=== PATIENT | female | born 1945 | race Caucasian/White ===

== ENCOUNTER 2021-05-11 11:30 | Day surgery (SDC) | payer OTHER, BC ==
--- NOTE | 2021-05-05 11:27 | RAD REPORT ---
EXAM DESCRIPTION: RAD - Chest Pa And Lat (2 Views) - 05/05/2021 11:04 am CLINICAL HISTORY: Pre op pending heart catheterization COMPARISON: Chest Pa And Lat (2 Views) dated 02/21/2017; Abdomen 1 View (KUB) dated 09/13/2016; Abdom en 1 View (KUB) dated 06/03/2016; CHEST PA AND LAT 2 VIEW dated 05/05/2012 FINDINGS: Lines: None. Lungs: No evidence of edema or pneumonia. Pleural: No significant pleural effusions or pneumothorax. Cardiac: Borderline cardiomegaly. Atherosclerosis. Bones: No acute fractures. Other: IMPRESSION: No acute cardiopulmonary disease.
[2021-05-05 11:28] LABS: Absolute Lymphocytes (CBC) 1.2 K/uL (0.7-4.9); Hematocrit 41.3 % (36.0-45.0); MPV 9.1 fL (7.6-11.3); Protime INR 0.83; RBC Red Blood Cell Count 4.29 M/uL (3.86-4.86)
[2021-05-05 11:41] LABS: Potassium 4.2 mmol/L (3.5-5.1)
--- NOTE | 2021-05-05 17:41 | EKG ---
Test Date: 2021-05-05 Test Time: 10:37:10 Assistant Manager Bilingual: SEYMOUR MEASUREMENT RESULTS: Intervals: Rate: 94 FL: 152 QRSD: 66 QT: 340 QTc: 425 [place]: P: 34 FL: 152 QRS: 10 T: 13 INTERPRETIVE STATEMENTS: Normal sinus rhythm with sinus arrhythmia Normal ECG Compared to ECG 05/05/2012 11:07:39 No significant changes Electronically Signed On 05-05-21 17:40:21 MEDIA DEVELOPER by Bartolo Ladd
[2021-05-11] MEDS ORDERED: NA CHLORIDE 0.9% 500 ML ONE (11:48)
[2021-05-11 12:18] VITALS: TEMP 97.6
[2021-05-11] MEDS ORDERED: LIDOCAINE 1% 20 ML MDV ONE (13:06)
[2021-05-11] MEDS ORDERED: FENTANYL CITR 100 MCG/2 ML ONE (13:07)
[2021-05-11] MEDS ORDERED: MIDAZOLAM HCL 2 MG/2 ML INJ ONE (13:07)
[2021-05-11] MEDS ORDERED: VERAPAMIL HCL 10 MG/4 ML VIAL IV ONE (13:07)
[2021-05-11] MEDS ORDERED: HEPARIN 5000 UNIT/ML 1 ML VIAL ONE (13:07)
[2021-05-11] MEDS ORDERED: ATROPINE SULF 1 MG/10 ML SYR IV ONE (13:08)
[2021-05-11] MEDS ORDERED: NITROGLYCERIN 100 MCG/ML SYR (for cath lab use only) IV ONE (13:08)
[2021-05-11] MEDS ORDERED: HEPA 1000U/500MLS 0 UNIT/0 ML BAG IV ONE (13:09)
[2021-05-11 16:59] VITALS: BP 123/55; O2SAT 98
--- NOTE | 2021-05-11 17:07 | OP ---
Date of Procedure: 05/11/2021 Surgeon: ILANA LINDSEY Procedure Performed: Selective angiogram. Indication: Abnormal stress test. Access: Right radial artery 6-Romanian closed with TR band. Complications: None. Bleeding: Less than 10 mL. Description Of Procedure: After risks, benefits, and alternatives were explained, the patient agreed to the procedure and signed informed consent. The patient was brought into cardiac catheterization laboratory, prepped and draped in usual sterile fashion, and fentanyl and Versed were given in increm ental doses to achieve adequate moderate sedation. Total sedation time was 20 minutes and then, I ac cessed right radial artery using pediatric micropuncture kit and placed a 6-Romanian Slender sheath and took 5-Romanian [place] 4.0 catheter into the aortic root, engaged the left main and right coronary desire ry. Took standard views and then removed the catheters and sheaths, placed TR band with good hemosta sis. Findings: 1.Left main is normal. 2.LAD; proximal and first diagonal branch looked normal. In the mid LAD, there was a long segment t hat is heavily calcified and it is about 70% to 80% stenosis and diagonal 2 branch also has about 70% stenosis as well. The rest of the LAD appears normal. 3.Left circumflex; moderate size with distal 40% stenosis. 4.RCA; large, dominant and normal. Conclusion: Severe mid LAD stenosis, heavily calcified along with D1 stenosis. Recommendation: Plan for atherectomy, CSI versus shockwave followed by PCI of the LAD and diagonal 2 to be done in [place]. SR/MODL Voice ID: [id number] Report ID: [id number]
== END 2021-05-11 17:10 | disposition home or self-care (01) ==
LOC: CCL 11:30
PROVIDERS: ATTEND Internal Medicine
DX: I25.10 Atherosclerotic heart disease of native coronary artery without angina pectoris (principal); I70.212 Atherosclerosis of native arteries of extremities with intermittent claudication, left leg; I10 Essential (primary) hypertension; E78.5 Hyperlipidemia, unspecified; E11.9 Type 2 diabetes mellitus without complications; Z87.891 Personal history of nicotine dependence; Z20.822 Contact with and (suspected) exposure to COVID-19; Z82.49 Family history of ischemic heart disease and other diseases of the circulatory system
CPT/HCPCS: 93005; 85025; 80048; 36415; 85610; 82947; 85730; 71046; 93454; U0003; C1893; J1644; J2250; J3010; J7040

== ENCOUNTER 2021-07-28 11:45 | Emergency (ER) | payer OTHER, BC ==
--- OUTSIDE RECORDS SUMMARY | 2021-07-28 11:48 | XMS REPORT | Continuity of Care Document ---
:1945 Author Organization [facility] t Address [address] [place] [address] Care Team Providers Name Role Phone Anthony Attending Clinician Unavailable Physician, Primary or Family Admitting Clinician Unavailabl e Payers Payer Name Policy Type Policy Number Effective Date Expiration Date S ource Problems This patient has no known problems. Allergies, Adverse Reactions, Alerts Allergy Allergy Status Severity Reaction(s) Onset Inactive Treating Comm ents Source Name Type Date Date Clinician [place] DA Active [facility] CHANGES 2-14 Clear 00:00: [address] Medications This patient has no known medications. Procedures This patient has no known procedures. Encounters Start End Encounter Admission Attending Care Care Encounter Source Date/Time Date/Time Type Type Clinicians Facility Department ID 2021-05-18 Inpatient KEISHA DuttonSHARA phipps OUTD [id number] [facility] 13:00:00 Gabriel [facility] 2021-05-20 2021-05-20 Outpatient SHARA Salas OUTD [id number] [facility] 05:20:00 05:20:00 Gabriel [facility] 2021-05-20 2021-05-20 Outpatient KEISHA SHARA Cruz [id number] [facility] 05:20:00 05:20:00 Gabriel 21 [facility] Results Test Description Test Time Test Comments Results Result Comments Source BASIC METABOLIC PANEL 2021-05-20 16:43:00 Test Item Value Reference Range Interpretation Comme nts SODIUM (test code = NA) 140 mEq/L 134-147 N POTASSIUM (test code = K) 4.0 mEq/L 3.4-5.0 N CHLORIDE (test code = CL) 105 mEq/L 100-108 N CARBON DIOXIDE (test code = CO2) 28 mEq/l 21-33 N ANION GAP (test code = GAP) 11 0-20 N GLUCOSE (test code = GLU) 136 mg/dL 70-110 H BLOOD UREA NITROGEN (test code = 12 mg/dL 7-18 N BUN) GLOMERULAR FILTRATION RATE (test 70.1 70-80 N Units of measure = ml/min/1.73 code = GFR) m2 CREATININE (test code = CREAT) 0.8 mg/dL 0.6-1.3 N CALCIUM (test code = CA) 9.5 mg/dL 8.0-10.5 N CBC W/AUTO [id number] 16:35:00 Test Item Value Reference Range Interpretation Comments WHITE BLOOD CELL (test code = 7.7 x10 3/uL 4.5-11.0 N WBC) RED BLOOD CELL (test code = 4.34 x10 6/uL 3.54-5.02 N RBC) HEMOGLOBIN (test code = HGB) 14.0 g/dL 11.0-15.0 N HEMATOCRIT (test code = HCT) 42.7 % 33.0-45.0 N MEAN CELL VOLUME (test code = 98.4 fL 81.0-99.0 N MCV) MEAN CELL HGB (test code = MCH) 32.3 pg 27.0-33.0 N MEAN CELL HGB CONCETRATION 32.8 g/dL 33.0-37.0 L (test code = MCHC) RED CELL DISTRIBUTION WIDTH CV 12.6 % 11.5-14.5 N (test code = RDW) RED CELL DISTRIBUTION WIDTH SD 45.3 fL 37.0-54.0 N (test code = RDW-SD) PLATELET COUNT (test code = 307 x10 3/uL 150-400 N PLT) MEAN PLATELET VOLUME (test code 10.6 fL 7.0-9.0 H = MPV) NEUTROPHIL % (test code = NT%) 66.2 % 56.0-77.0 N IMMATURE GRANULOCYTE % (test 0.4 % 0.0-2.0 N code = IG%) LYMPHOCYTE % (test code = LY%) 18.1 % 14.0-32.0 N MONOCYTE % (test code = MO%) 11.2 % 4.8-9.0 H EOSINOPHIL % (test code = EO%) 3.2 % 0.3-3.7 N BASOPHIL % (test code = BA%) 0.9 % 0.0-2.0 N NUCLEATED RBC % (test code = 0.0 % 0-0 N NRBC%) NEUTROPHIL # (test code = NT#) 5.12 x10 3/uL 2.0-7.6 N IMMATURE GRANULOCYTE # (test 0.03 x10 3/uL 0.00-0.03 N code = IG#) LYMPHOCYTE # (test code = LY#) 1.40 x10 3/uL 1.0-3.8 N MONOCYTE # (test code = MO#) 0.87 x10 3/uL 0.1-0.8 H EOSINOPHIL # (test code = EO#) 0.25 x10 3/uL 0.0-0.2 H BASOPHIL # (test code = BA#) 0.07 x10 3/uL 0.0-0.2 N NUCLEATED RBC # (test code = 0.00 x10 3/uL 0.0-0.1 N NRBC#) MANUAL DIFF REQUIRED (test code NO = MDIFF) GLUCOSE [id number] 12:48:00 Test Item Value Reference Range Interpretation Comments GLUCOSE BEDSIDE (test 134 MG/DL 70-110 H Perfor med by certified code = GLUBED) batting machine operator insulation at [facility] [id number] 12:18:00 Test Item Value Reference Range Interpretation Comments ACT-ISTAT (test code 243 SEC 74-137 H Perform ed by certified = ACTI) batting machine operator insulation at [facility] GLUCOSE [id number] 10:12:00 Test Item Value Reference Range Interpretation Comments GLUCOSE BEDSIDE (test 178 MG/DL 70-110 H Perfor med by certified code = GLUBED) batting machine operator insulation at [facility] BASIC METABOLIC [id number] 15:01:00 Test Item Value Reference Range Interpretation Comments SODIUM (test code = NA) 140 mEq/L 134-147 N POTASSIUM (test code = 4.1 mEq/L 3.4-5.0 N K) CHLORIDE (test code = 103 mEq/L 100-108 N CL) CARBON DIOXIDE (test 31 mEq/l 21-33 N code = CO2) ANION GAP (test code = 10 0-20 N GAP) GLUCOSE (test code = 188 mg/dL 70-110 H GLU) BLOOD UREA NITROGEN 13 mg/dL 7-18 N (test code = BUN) GLOMERULAR FILTRATION 70.1 70-80 N Units of measure = RATE (test code = GFR) ml/mi n/1.73 m2 CREATININE (test code = 0.8 mg/dL 0.6-1.3 N CREAT) CALCIUM (test code = 9.7 mg/dL 8.0-10.5 N CA) PROTHROMBIN [id number] 14:45:00 Test Item Value Reference Range Interpretation Comments PROTHROMBIN TIME 10.9 SECONDS 9.3-12.9 N PATIENT (test code = PTP) INTERNATIONAL NORMAL 1.0 0.8-1.2 N TARGET RATIO (test code = INR BY IN DICATION INR) Indication INR1. Prophyl axis of venous thrombos is 2.0 - 3. 0 (orthopedic axel [place]), Prophylaxis of venous thrombos is (other than hig h-risk surgery), Zaida tment of Deep Vein Thrombosis/Pulm onary Embolism, Preve ntion of systemic emb olism - Tissue heart va lves, Acute Myocardia l Infarction (to prevent systemic embo lism), Valvular heart disease, Atri al Fibrillation, Bileaflet mecha nical valve in aortic position.2. Mec hanical prosthetic valv es (high risk), 2.5 - 3.5 Presence of Lupus Anticoagu lant or Antiphospholi pid Antibodies, Pre vention of systemic e mbolism - Acute Myocard ial Infarction (t o prevent recurre nt infarct). CBC W/AUTO [id number] 14:37:00 Test Item Value Reference Range Interpretation Comments WHITE BLOOD CELL (test code = 7.1 x10 3/uL 4.5-11.0 N WBC) RED BLOOD CELL (test code = 4.27 x10 6/uL 3.54-5.02 N RBC) HEMOGLOBIN (test code = HGB) 13.6 g/dL 11.0-15.0 N HEMATOCRIT (test code = HCT) 42.9 % 33.0-45.0 N MEAN CELL VOLUME (test code = 100.5 fL 81.0-99.0 H MCV) MEAN CELL HGB (test code = MCH) 31.9 pg 27.0-33.0 N MEAN CELL HGB CONCETRATION 31.7 g/dL 33.0-37.0 L (test code = MCHC) RED CELL DISTRIBUTION WIDTH CV 12.7 % 11.5-14.5 N (test code = RDW) PLATELET COUNT (test code = 290 x10 3/uL 150-400 N PLT) NEUTROPHIL % (test code = NT%) 70.5 % 56.0-77.0 N LYMPHOCYTE % (test code = LY%) 16.0 % 14.0-32.0 N NEUTROPHIL # (test code = NT#) 4.97 x10 3/uL 2.0-7.6 N LYMPHOCYTE # (test code = LY#) 1.13 x10 3/uL 1.0-3.8 N MANUAL DIFF REQUIRED (test code NO = MDIFF) RED CELL DISTRIBUTION WIDTH SD 46.5 fL 37.0-54.0 N (test code = RDW-SD) MEAN PLATELET VOLUME (test code 11.1 fL 7.0-9.0 H = MPV) IMMATURE GRANULOCYTE % (test 0.4 % 0.0-2.0 N code = IG%) MONOCYTE % (test code = MO%) 9.3 % 4.8-9.0 H EOSINOPHIL % (test code = EO%) 2.7 % 0.3-3.7 N BASOPHIL % (test code = BA%) 1.1 % 0.0-2.0 N NUCLEATED RBC % (test code = 0.0 % 0-0 N NRBC%) IMMATURE GRANULOCYTE # (test 0.03 x10 3/uL 0.00-0.03 N code = IG#) MONOCYTE # (test code = MO#) 0.66 x10 3/uL 0.1-0.8 N EOSINOPHIL # (test code = EO#) 0.19 x10 3/uL 0.0-0.2 N BASOPHIL # (test code = BA#) 0.08 x10 3/uL 0.0-0.2 N NUCLEATED RBC # (test code = 0.00 x10 3/uL 0.0-0.1 N NRBC#)
[2021-07-28] MEDS ORDERED: METOPROLOL TARTRATE 5 MG/5 ML INJ IV ONE (12:18)
[2021-07-28] MEDS ORDERED: NA CHLORIDE 0.9% 500 ML ONE (12:18)
[2021-07-28 12:19] LABS: Hematocrit 38.3 % (36.0-45.0); Lymphocytes % 14.8 % (15.3-44.8); MPV 9.3 fL (7.6-11.3); RBC Red Blood Cell Count 4.03 M/uL (3.86-4.86)
[2021-07-28] MEDS ORDERED: MAGNESIUM SULFATE 1 gm IVPB 1 GM/100 ML BAG IV ONE (12:19)
[2021-07-28 12:21] LABS: Protime INR 0.96
[2021-07-28] MEDS ORDERED: METOPROLOL TAR 25 MG TAB ONE (12:30)
[2021-07-28 12:37] LABS: Potassium 3.7 mmol/L (3.5-5.1)
--- NOTE | 2021-07-28 13:20 | RAD REPORT ---
EXAM DESCRIPTION: RAD - Chest Single View - 07/28/2021 1:05 pm CLINICAL HISTORY: PALPITATIONS COMPARISON: Chest Pa And Lat (2 Views) dated 05/05/2021; Chest Pa And Lat (2 Views) dated 02/21/2017; Abdomen 1 View (KUB) dated 09/13/2016; Abdomen 1 View (KUB) dated 06/03/2016 FINDINGS: Lines: None. Lungs: No evidence of edema or pneumonia. Pleural: No significant pleural effusions or pneumothorax. Cardiac: Cardiomegaly. Bones: No acute fractures. Other: Atherosclerosis . IMPRESSION: No acute cardiopulmonary disease.
--- NOTE | 2021-07-28 13:28 | EDPHYS ---
Physician Documentation [facility] Name: Cornel Brewer Age: 75 yrs Sex: Female : 1945 Arrival Date: 07/28/2021 Time: 11:46 Bed 17 Private MD: Vanesa Hamilton; Gabriel Cruz ED Physician Dwaien Sow HPI: 07/28 12:44 This 75 yrs old Female presents to ER via Wheelchair with complaints of afib. rn 12:44 The patient presents with a history of irregular heart beat. Context: The symptoms rn occur at rest. Onset: The symptoms/episode began/occurred at an unknown time. Modifying factors: The symptoms are aggravated by nothing. The symptoms are alleviated by nothing. Associated signs and symptoms: Pertinent negatives: anxiety, chest pain, fever, nausea, SOB, syncope, near-syncope, vomiting. Severity of symptoms: At their worst the symptoms were moderate in the emergency department the symptoms are unchanged. The patient has not experienced similar symptoms in the past. The patient has not recently seen a physician. Pt was getting pre-op w/u for peripheral arterial disease, noted to have irregular heart beat, sent here for further eval. Pt without symptoms, denies chest pain/sob/nausea/vomiting/syncope. Doesn't even feel any racing or abnormality. . Historical: - Allergies: 12:01 PHENOTHIAZINES; vg1 - PSHx: 12:01 Stented artery; vg1 - Immunization history:: Client reports having NOT received the Covid vaccine. - Social history:: Smoking status: Patient/guardian denies using tobacco, the patient reports quitting approximately 9 years ago. - Family history:: not pertinent. - Hospitalizations: : No recent hospitalization is reported. ROS: 12:44 Constitutional: Negative for fever, chills, and weight loss, Eyes: Negative for injury, rn pain, redness, and discharge, Neck: Negative for injury, pain, and swelling, Cardiovascular: Negative for chest pain, palpitations, and edema, Respiratory: Negative for shortness of breath, cough, wheezing, and pleuritic chest pain, Abdomen/GI: Negative for abdominal pain, nausea, vomiting, diarrhea, and constipation, Back: Negative for injury and pain, : Negative for injury, bleeding, discharge, and swelling, MS/Extremity: Negative for injury and deformity, Skin: Negative for injury, rash, and discoloration, Neuro: Negative for headache, weakness, numbness, tingling, and seizure. Exam: 12:44 Constitutional: This is a well developed, well nourished patient who is awake, alert, rn and in no acute distress. Head/Face: Normocephalic, atraumatic. Eyes: Periorbital areas with no swelling, redness, or edema. Cardiovascular: Tachycardic, irregular Respiratory: No increased work of breathing, no retractions or nasal flaring. Abdomen/GI: soft, non-tender Skin: Warm, dry, no cyanosis MS/ Extremity: Pulses equal, no cyanosis. Neuro: Awake and alert, GCS 15, oriented to person, place, time, and situation. Motor strength 5/5 in all extremities. Sensory grossly intact. Vital Signs: 11:59 BP 146 / 93; Pulse 125; Resp 18; Temp 97.9; Pulse Ox 100% ; Weight 69.85 kg; Height 5 vg1 ft. 2 in. (157.48 cm); Pain 0/10; 12:30 BP 107 / 65; Pulse 135; Resp 11; Pulse Ox 99% ; ww 13:54 BP 102 / 59; Pulse 69; Resp 19; Pulse Ox 99% ; ww 11:59 Body Mass Index 28.17 (69.85 kg, 157.48 cm) vg1 MDM: 11:57 Patient medically screened. rn 13:26 Differential diagnosis: arrythmia, dehydration, stress disorder, afib. Data reviewed: rn vital signs, nurses notes, lab test result(s), EKG, and as a result, I will discharge patient. Counseling: I had a detailed discussion with the patient and/or guardian regarding: the historical points, exam findings, and any diagnostic results supporting the discharge/admit diagnosis, lab results, radiology results, the need for outpatient follow up, to return to the emergency department if symptoms worsen or persist or if there are any questions or concerns that arise at home. Response to treatment: the patient's symptoms have resolved after treatment, the patient's condition has returned to base line, the patient is now symptom free, and as a result, I will discharge patient. Special discussion: I discussed with the patient/guardian in detail that at this point there is no indication for admission to the hospital. It is understood, however, that if the symptoms persist or worsen the patient needs to return immediately for re-evaluation. Based on the history and exam findings, there is no indication for further emergent testing or inpatient evaluation. I discussed with the patient/guardian the need to see the unscrambler for further evaluation of the symptoms. ED course: Pt out of afib, now in NSR, asymptomatic, no abnormal blood tests except for slightly elevated glucose, neg trop, neg BNP. HR now 77. Will dc home without changes in medication. Already on metoprolol and brilinta, will defer medication recommendations to Dr. Cruz, her unscrambler. . 07/28 11:58 Order name: Basic Metabolic Panel; Complete Time: 12:41 rn 07/28 11:58 Order name: CBC with Diff; Complete Time: 12:07/28 11:58 Order name: Magnesium; Complete Time: 12:07/28 11:58 Order name: NT PRO-BNP; Complete Time: 12:07/28 11:58 Order name: PT-INR; Complete Time: 12:07/28 11:58 Order name: Troponin HS; Complete Time: 12:07/28 11:57 Order name: Cardiac monitoring; Complete Time: 12:07/28 11:57 Order name: O2 Sat Monitoring; Complete Time: 12:07/28 11:57 Order name: EKG; Complete Time: 11:58 07/28 11:58 Order name: XRAY Chest (1 view); Complete Time: 13:21 07/28 11:57 Order name: EKG - Nurse/Tech; Complete Time: 12:07/28 11:58 Order name: IV Saline Lock; Complete Time: 12:07/28 11:58 Order name: Labs collected and sent; Complete Time: 12:07/28 11:58 Order name: O2 Per Protocol; Complete Time: 12:08 rn Administered Medications: 12:15 Drug: NS 0.9% 500 ml Route: IV; Rate: bolus; Site: right antecubital; ww 12:16 Drug: Lopressor (metoprolol) 5 mg Route: IVP; Site: right antecubital; ww 12:20 Drug: Magnesium Sulfate 1 grams Route: IVPB; Infused Over: 1 hrs; Site: right ww antecubital; 12:31 Drug: Metoprolol 25 mg Route: PO; ww Disposition Summary: 07/28/21 13:28 Discharge Ordered Location: Home rn Problem: new rn Symptoms: are resolved rn Condition: Stable rn Diagnosis - Paroxysmal atrial fibrillation rn Followup: rn - With: Gabriel Cruz MD - When: As needed - Reason: Recheck today's complaints, Re-evaluation by your physician Discharge Instructions: - Discharge Summary Sheet rn - Atrial Fibrillation rn Forms: - Medication Reconciliation Form rn - Thank You Letter rn - Antibiotic wire harness assembler - Prescription Opioid Use rn Signatures: Dispatcher [employer] EDDwaine Sandoval MD MD rn Garcia, Victoria, RN RN 1 Migdalia Liz RN RN ww Corrections: (The following items were deleted from the chart) 12:03 12:01 PSHx: Coronary artery bypass graft; vg1 vg1
--- NOTE | 2021-07-28 13:28 | ER ---
Nurse's Notes [facility] Name: Cornel Brewer Age: 75 yrs Sex: Female : 1945 Arrival Date: 07/28/2021 Time: 11:46 Bed 17 Private MD: Vanesa Hamilton; Gabriel Cruz Diagnosis: Paroxysmal atrial fibrillation Presentation: 07/28 11:59 Chief complaint: Patient states: " I was in pre op to see if I need to get a stent in vg1 my Left leg and they did an EKG and they said it was irregular and it looked like Afib, I dont have Afib, and they said I needed to come to the emergency room right away" Pt denies chest pain or SOB. Coronavirus screen: Vaccine status: Patient reports being unvaccinated. Client denies travel out of the [place] in the last 14 days. Ebola Screen: Patient denies exposure to infectious person. Patient denies travel to an Ebola-affected area in the 21 days before illness onset. Initial Sepsis Screen: Does the patient meet any 2 criteria? HR > 90 bpm. Does the patient have a suspected source of infection? No. Patient's initial sepsis screen is negative. Risk Assessment: Do you want to hurt yourself or someone else? Patient reports no desire to harm self or others. Onset of symptoms was July 28, 2021. 11:59 Method Of Arrival: Wheelchair vg1 11:59 Acuity: DARIO 2 vg1 Triage Assessment: 12:01 General: Appears in no apparent distress. comfortable, Behavior is calm, cooperative. vg1 Pain: Denies pain. Cardiovascular: Patient's skin is warm and dry. Respiratory: Airway is patent Respiratory effort is even, unlabored. Historical: - Allergies: 12:01 PHENOTHIAZINES; vg1 - PSHx: 12:01 Stented artery; vg1 - Immunization history:: Client reports having NOT received the Covid vaccine. - Social history:: Smoking status: Patient/guardian denies using tobacco, the patient reports quitting approximately 9 years ago. - Family history:: not pertinent. - Hospitalizations: : No recent hospitalization is reported. Screenin:30 Abuse screen: Denies threats or abuse. Denies injuries from another. Nutritional ww screening: No deficits noted. Nutritional screening: No deficits noted. Tuberculosis screening: No symptoms or risk factors identified. Fall Risk None identified. Assessment: 12:15 General: Appears in no apparent distress. comfortable, Behavior is calm, cooperative. ww Pain: Denies pain. Neuro: Level of Consciousness is awake, alert, obeys commands, Oriented to person, place, time, situation, Moves all extremities. Speech is normal. Cardiovascular: Patient's skin is warm and dry. Rhythm is atrial fibrillation with rapid ventricular response Chest pain is denied. Respiratory: Airway is patent Respiratory effort is even, unlabored, Respiratory pattern is regular, symmetrical. GI: No signs and/or symptoms were reported involving the gastrointestinal system. : No signs and/or symptoms were reported regarding the genitourinary system. EENT: No signs and/or symptoms were reported regarding the EENT system. Derm: No signs and/or symptoms reported regarding the dermatologic system. Skin is intact, is healthy with good turgor, Skin is pink, warm \\T\\ dry. 13:15 Reassessment: Patient appears in no apparent distress at this time. Patient and/or ww family updated on plan of care and expected duration. Pain level reassessed. Patient is alert, oriented x 3, equal unlabored respirations, skin warm/dry/pink. Reassessment: patient converted to NSR, EKG obtained and Dr. Mccall notified. Cardiovascular: Rhythm is sinus rhythm. Vital Signs: 11:59 BP 146 / 93; Pulse 125; Resp 18; Temp 97.9; Pulse Ox 100% ; Weight 69.85 kg; Height 5 vg1 ft. 2 in. (157.48 cm); Pain 0/10; 12:30 BP 107 / 65; Pulse 135; Resp 11; Pulse Ox 99% ; ww 13:54 BP 102 / 59; Pulse 69; Resp 19; Pulse Ox 99% ; ww 11:59 Body Mass Index 28.17 (69.85 kg, 157.48 cm) vg1 ED Course: 11:46 Patient arrived in ED. as 11:46 Vanesa Hamilton is Private Physician. as 11:46 Gabriel Cruz MD is Private Physician. as 11:57 Dwaine Sow MD is Attending Physician. rn 11:59 EKG done, by ED staff, reviewed by Dwaine Sow MD. em1 12:01 Triage completed. vg1 12:01 Arm band placed on. vg1 12:07 Migdalia Liz, RN is Primary Nurse. ww 12:30 Patient has correct armband on for positive identification. Bed in low position. Call ww light in reach. Side rails up X2. night monitor on. Pulse ox on. NIBP on. 13:07 XRAY Chest (1 view) In Process Unspecified. EDMS 13:18 EKG done, by ED staff, reviewed by Dwaine Sow MD. em1 13:28 Gabriel Cruz MD is Referral Physician. rn 13:56 No provider procedures requiring assistance completed. IV discontinued, intact, ww bleeding controlled, No redness/swelling at site. Pressure dressing applied. Administered Medications: 12:15 Drug: NS 0.9% 500 ml Route: IV; Rate: bolus; Site: right antecubital; ww 12:16 Drug: Lopressor (metoprolol) 5 mg Route: IVP; Site: right antecubital; ww 12:20 Drug: Magnesium Sulfate 1 grams Route: IVPB; Infused Over: 1 hrs; Site: right ww antecubital; 12:31 Drug: Metoprolol 25 mg Route: PO; ww Outcome: 13:28 Discharge ordered by MD. rn 13:56 Discharged to home ww 13:56 Condition: stable 13:56 Discharge instructions given to patient, Instructed on discharge instructions, follow up and referral plans. medication usage, safety practices, Demonstrated understanding of instructions, follow-up care, medications. 13:57 Patient left the ED. ww Signatures: Dispatcher [employer] EDMS Elvira Tong as Dwaine Sow MD MD rn Martinez, Eric em1 Tonia Mata RN RN 1 Migdalia Liz, RN RN ww Corrections: (The following items were deleted from the chart) 12:03 12:01 PSHx: Coronary artery bypass graft; vg1 vg1
--- NOTE | 2021-07-29 12:58 | EKG ---
Test Date: 2021-07-28 Test Time: 13:10:23 French Teacher: KATE MEASUREMENT RESULTS: Intervals: Rate: 76 [place]: 154 QRSD: 64 QT: 368 QTc: 414 [place]: P: -12 [place]: 154 QRS: 4 T: 27 INTERPRETIVE STATEMENTS: Normal sinus rhythm Cannot rule out Anterior infarct, age undetermined Abnormal ECG Compared to ECG 07/28/2021 11:59:01 Atrial fibrillation no longer present Myocardial infarct finding still present Electronically Signed On 07-29-21 12:57:33 CDT by Bartolo Ladd
--- NOTE | 2021-07-29 12:58 | EKG ---
Test Date: 2021-07-28 Test Time: 11:59:01 Rim Fire Priming Tool Setter: KATE MEASUREMENT RESULTS: Intervals: Rate: 181 UT: QRSD: 62 QT: 274 QTc: 475 [place]: P: UT: QRS: 1 T: 30 INTERPRETIVE STATEMENTS: Atrial fibrillation with rapid ventricular response Cannot rule out Anterior infarct, age undetermined Abnormal ECG Compared to ECG 07/28/2021 09:31:28 Myocardial infarct finding now present Atrial flutter no longer present Ventricular premature complex(es) no longer present ST (T wave) deviation no longer present Electronically Signed On 07-29-21 12:57:35 CDT by Bartolo Ladd
== END 2021-07-28 13:57 | disposition home or self-care (01) ==
LOC: ER 11:45
DX: I48.0 Paroxysmal atrial fibrillation (principal); Z88.8 Allergy status to other drugs, medicaments and biological substances; Z95.818 Presence of other cardiac implants and grafts
CPT/HCPCS: 93005 ×2; 85025; 80048; 36415; 83735; 85610; 84484; 83880; 71045; 96375; 96374; 99284; J3475; J7040

== ENCOUNTER 2021-07-30 11:45 | Day surgery (SDC) | payer OTHER, BC ==
[2021-07-28 11:07] LABS: Absolute Lymphocytes (CBC) 0.9 K/uL (0.7-4.9); Hematocrit 38.5 % (36.0-45.0); MPV 9.7 fL (7.6-11.3); RBC Red Blood Cell Count 4.11 M/uL (3.86-4.86)
[2021-07-28 11:10] LABS: Protime INR 0.94
[2021-07-28 11:15] LABS: Potassium 4.1 mmol/L (3.5-5.1)
--- NOTE | 2021-07-29 12:59 | EKG ---
Test Date: 2021-07-28 Test Time: 09:31:28 Physician Practice Administrator: STEPHEN MEASUREMENT RESULTS: Intervals: Rate: 141 [place]: QRSD: 62 QT: 248 QTc: 379 [place]: P: -79 [place]: QRS: 0 T: 50 INTERPRETIVE STATEMENTS: Atrial flutter with variable AV block with premature ventricular or aberrantly conducted complexes Low voltage QRS Nonspecific ST and T wave abnormality Abnormal ECG Compared to ECG 05/05/2021 10:37:10 Ventricular premature complex(es) now present Low QRS voltage now present ST (T wave) deviation now present Sinus rhythm no longer present Sinus arrhythmia no longer present Electronically Signed On 07-29-21 12:57:37 CDT by Bartolo Ladd
[~2021-07-30 11:45] MED LIST: ASPIRIN 325 MG TAB ONE; CLOPIDOGREL 75 MG TABLET ONE; HEPA 1000U/500MLS 2,000 UNIT/1,000 ML BAG IV ONE; HEPARIN 10,000 UNIT/10 ML VIAL IV ONE; HEPARIN 5000 UNIT/ML 1 ML VIAL ONE; TICAGRELOR 90 MG TABLET PO ONE; VERAPAMIL HCL 10 MG/4 ML VIAL IV ONE
[2021-07-30] MEDS ORDERED: NA CHLORIDE 0.9% 500 ML ONE (11:56)
[2021-07-30] MEDS ORDERED: MIDAZOLAM HCL 2 MG/2 ML INJ ONE (13:10)
[2021-07-30] MEDS ORDERED: FENTANYL CITR 100 MCG/2 ML ONE (13:10)
[2021-07-30] MEDS ORDERED: ATROPINE SULF 1 MG/10 ML SYR IV ONE (13:11)
[2021-07-30 15:04] VITALS: O2SAT 96
[2021-07-30 15:08] VITALS: BP 127/59
--- NOTE | 2021-07-31 01:06 | OP ---
Date of Procedure: 07/30/2021 Surgeon: ILANA LINDSEY Procedure Performed: Selective peripheral angiogram, distal aortogram with runoff. Access: Radial artery 6-Citizen Of [place] closed with TR band. Complications: None. Estimated Blood Loss: Bleeding less than 10 mL. Anesthesia: Total sedation time was 25 minutes. Description Of Procedure: After risks, benefits, and alternatives were explained, the patient agreed to the procedure and signed informed consent. The patient was brought to the cardiac catheterizatio n laboratory and prepped and draped in sterile fashion. I accessed right radial artery using pediatr ic micropuncture kit, placed a 6-Citizen Of [place] Shuttle sheath and took a long 5-Citizen Of [place] pigtail catheter into the distal aorta, performed distal aortogram and runoff and removed the catheter and sheath and plac ed TR band with good hemostasis. Fentanyl and Versed were given in incremental doses to achieve adeq uate moderate sedation. Indication For Procedures: Severe bilateral lower extremity pain and claudication with abnormal Dopp ler. Findings: 1.Distal aorta is patent. 2.Right common iliac has 30% diffuse stenosis. Left common iliac is normal. 3.Bilateral common femoral arteries are normal. 4.Bilateral profunda are patent and normal. 5.Bilateral SFA diffuse disease with multiple areas of 70% to 80% stenosis. 6.Below the knee, there is a 3-vessel runoff with diffuse nqdr-tu-mzkgawng disease and in the 3 desire sherrell, the anterior tibial, posterior tibial and the peroneal arteries all have a diffuse 20% to 30% s tenosis, but the vessels are open. Conclusion: Severe bilateral SFA stenosis, diffuse. Plan: Intervention to be done at [place]. We will start with working on the worse leg and stage the other leg. SR/MODL Voice ID: [id number] Report ID: [id number]
== END 2021-07-30 16:03 | disposition home or self-care (01) ==
LOC: CCL 11:45
PROVIDERS: ATTEND Internal Medicine
DX: I70.203 Unspecified atherosclerosis of native arteries of extremities, bilateral legs (principal); I25.10 Atherosclerotic heart disease of native coronary artery without angina pectoris; I10 Essential (primary) hypertension; E78.5 Hyperlipidemia, unspecified; E11.9 Type 2 diabetes mellitus without complications; Z87.891 Personal history of nicotine dependence; Z79.84 Long term (current) use of oral hypoglycemic drugs; Z79.899 Other long term (current) drug therapy; Z88.8 Allergy status to other drugs, medicaments and biological substances; Z20.822 Contact with and (suspected) exposure to COVID-19; Z82.49 Family history of ischemic heart disease and other diseases of the circulatory system
CPT/HCPCS: 93005; 85025; 80048; 36415; 85610; 82947; 85730; 36200; 75630; 76937; U0003; C1893; J1644 ×2; J3010; J7040; J2250

== ENCOUNTER 2022-10-07 10:47 | Emergency (ER) | payer OTHER, BC ==
--- OUTSIDE RECORDS SUMMARY | 2022-10-07 10:50 | XMS REPORT | Continuity of Care Document ---
:1945 Author Organization [facility] t Address [address] [facility] [address] [place] [address] Care Team Providers Name Role Phone Gabriel Cruz Attending Clinician Unavailable Physician, No Primary or Family Admitting Clinician Unavaila ble Payers Payer Name Policy Type Policy Number Effective Date Expiration Date S ource Problems This patient has no known problems. Allergies, Adverse Reactions, Alerts Allergy Allergy Status Severity Reaction(s) Onset Inactive Treating Comm ents Source Name Type Date Date Clinician Phenothi DA Active [facility] CHANGES 2-14 Clear 00:00: [address] Medications This patient has no known medications. Procedures This patient has no known procedures. Encounters Start End Encounter Admission Attending Care Care Encounter Source Date/Time Date/Time Type Type Clinicians Facility Department ID 2021-09-09 2021-09-09 Outpatient SHARA Salas [id number] [facility] 05:13:00 05:13:00 Gabriel [id number] [facility] 2021-09-09 2021-09-09 Outpatient SHARA Salas OUTD [id number] [facility] 05:13:00 05:13:00 Gabriel 08 [facility] 2021-05-20 2021-05-20 Inpatient SHARA Salas OUTD [id number] [facility] 05:20:00 05:20:00 Gabriel 21 [facility] Results Test Description Test Time Test Comments Results Result Comments Source ACT-ISTAT 2021-09-09 08:51:00 Test Item Value Reference Range Interpretation Comme nts ACT-ISTAT (test code = ACTI) 271 SEC 74-137 H Performed by certified power plant operator at [facility] [id number] 08:29:00 Test Item Value Reference Range Interpretation Comments ACT-ISTAT (test code 265 SEC 74-137 H Perform ed by certified = ACTI) power plant operator at [facility] GLUCOSE [id number] 06:26:00 Test Item Value Reference Range Interpretation Comments GLUCOSE BEDSIDE (test 159 MG/DL 70-110 H [facility] by certified code = GLUBED) power plant operator at [facility] BASIC METABOLIC [id number] 15:12:00 Test Item Value Reference Range Interpretation Comments SODIUM (test code = NA) 140 mEq/L 134-147 N POTASSIUM (test code = 4.4 mEq/L 3.4-5.0 N K) CHLORIDE (test code = 106 mEq/L 100-108 N CL) CARBON DIOXIDE (test 28 mEq/l 21-33 N code = CO2) ANION GAP (test code = 11 0-20 N GAP) GLUCOSE (test code = 174 mg/dL 70-110 H GLU) BLOOD UREA NITROGEN 10 mg/dL 7-18 N (test code = BUN) GLOMERULAR FILTRATION 54.2 70-80 L Units of measure = RATE (test code = GFR) ml/mi n/1.73 m2 CREATININE (test code = 1.0 mg/dL 0.6-1.3 N CREAT) CALCIUM (test code = 9.8 mg/dL 8.0-10.5 N CA) PROTHROMBIN [id number] 15:09:00 Test Item Value Reference Range Interpretation Comments PROTHROMBIN TIME 11.6 SECONDS 9.3-12.9 N PATIENT (test code = PTP) INTERNATIONAL NORMAL 1.0 0.8-1.2 N TARGET INR BY RATIO (test code = INDICATIO N Indication INR) INR1. Prophylax is of venous thrombos is 2.0 - 3.0 (orthoped ic surgery), Proph ylaxis of venous throm bosis (other than hig h-risk surgery), Treat ment of Deep Vein Thrombosis/Pulm onary Embolism, Preve ntion of systemic emb olism - Tissue heart va lves, Acute Myocardia l Infarction (to prevent systemic emboli sm), Valvular heart disease, Atrial Fibrillation, Bileaflet mecha nical valve in aortic position.2. Mec hanical prosthetic valv es (high risk), 2. 5 - 3.5 Presence of Lup us Anticoagulant o r Antiphospholipi d Antibodies, Pre vention of systemic emb olism - Acute Myocardia l Infarction (to prevent recurrent infar ct). CBC W/AUTO [id number] 14:55:00 Test Item Value Reference Range Interpretation Comments WHITE BLOOD CELL (test code = 6.5 x10 3/uL 4.5-11.0 N WBC) RED BLOOD CELL (test code = 3.83 x10 6/uL 3.54-5.02 N RBC) HEMOGLOBIN (test code = HGB) 11.4 g/dL 11.0-15.0 N HEMATOCRIT (test code = HCT) 37.1 % 33.0-45.0 N MEAN CELL VOLUME (test code = 96.9 fL 81.0-99.0 N MCV) MEAN CELL HGB (test code = MCH) 29.8 pg 27.0-33.0 N MEAN CELL HGB CONCETRATION 30.7 g/dL 33.0-37.0 L (test code = MCHC) RED CELL DISTRIBUTION WIDTH CV 13.1 % 11.5-14.5 N (test code = RDW) PLATELET COUNT (test code = 327 x10 3/uL 150-400 N PLT) NEUTROPHIL % (test code = NT%) 69.4 % 56.0-77.0 N LYMPHOCYTE % (test code = LY%) 13.8 % 14.0-32.0 L NEUTROPHIL # (test code = NT#) 4.53 x10 3/uL 2.0-7.6 N LYMPHOCYTE # (test code = LY#) 0.90 x10 3/uL 1.0-3.8 L MANUAL DIFF REQUIRED (test code NO = MDIFF) RED CELL DISTRIBUTION WIDTH SD 45.9 fL 37.0-54.0 N (test code = RDW-SD) MEAN PLATELET VOLUME (test code 11.3 fL 7.0-9.0 H = MPV) IMMATURE GRANULOCYTE % (test 0.5 % 0.0-2.0 N code = IG%) MONOCYTE % (test code = MO%) 12.6 % 4.8-9.0 H EOSINOPHIL % (test code = EO%) 2.9 % 0.3-3.7 N BASOPHIL % (test code = BA%) 0.8 % 0.0-2.0 N NUCLEATED RBC % (test code = 0.0 % 0-0 N NRBC%) IMMATURE GRANULOCYTE # (test 0.03 x10 3/uL 0.00-0.03 N code = IG#) MONOCYTE # (test code = MO#) 0.82 x10 3/uL 0.1-0.8 H EOSINOPHIL # (test code = EO#) 0.19 x10 3/uL 0.0-0.2 N BASOPHIL # (test code = BA#) 0.05 x10 3/uL 0.0-0.2 N NUCLEATED RBC # (test code = 0.00 x10 3/uL 0.0-0.1 N NRBC#) - XR CHEST 2 [id number] 00:00:00 [facility] : 1945 Sex: F FAX:Gabriel Orozco MD [phone] Agency: St: PRE Name: ROBIN BLANCHARD [facility] : 1945 Age/S: 75/F [address] [place] [address] Unit #: [id number] Loc: [place] [address] Phys: Gabriel Cruz MD Acct: [id number] Dis Date: Status: PRE SDC PHONE #: [phone] Exam Date: 09/08/2021 1551 FAX #: [phone] Reason: PREOP EXAMS: CPT CODE: [id number] XR CHEST 2 V 20102 PROCEDURE INFORMATION: Exam: XR Chest Exam date and time: 09/08/2021 2:47 PM Age: 75 years old Clinical indication: Pre-operative exam; Respiratory screening exam; Additional info: Preop TECHNIQUE: Imaging protocol: XR of the chest. Views: 2 vi ews. COMPARISON: No relevant prior studies available. FINDINGS: Lungs: The lungs are clear. Pleural spaces: No pleural effusion. No pneumothorax. Heart/Mediastinum: Cardiomediastinal silhouette is within normal limits for size with coronary artery calcifications or graft. Bones/joints: No acute bony fi nding. IMPRESSION: No acute or active pulmonary findings at 2316 Reported and signed by: Keven Pastor M.D. CC: Gabriel Cruz MD Technologist: RT Ary(R) Trnscrd Date/Time/By: 09/08/2021 (2315) : By: [email or web address] Orig Print D/T: S: 09/08/2021 (2315) PAGE 1 Signed ReportBASIC METABOLIC [id number] 16:43:00 Test Item Value Reference Range Interpretation Comments SODIUM (test code = NA) 140 mEq/L 134-147 N POTASSIUM (test code = 4.0 mEq/L 3.4-5.0 N K) CHLORIDE (test code = 105 mEq/L 100-108 N CL) CARBON DIOXIDE (test 28 mEq/l 21-33 N code = CO2) ANION GAP (test code = 11 0-20 N GAP) GLUCOSE (test code = 136 mg/dL 70-110 H GLU) BLOOD UREA NITROGEN 12 mg/dL 7-18 N (test code = BUN) GLOMERULAR FILTRATION 70.1 70-80 N Units of measure = RATE (test code = GFR) ml/mi n/1.73 m2 CREATININE (test code = 0.8 mg/dL 0.6-1.3 N CREAT) CALCIUM (test code = 9.5 mg/dL 8.0-10.5 N CA) CBC W/AUTO [id number] 16:35:00 Test Item Value Reference Range Interpretation [...] REQUIRED (test code NO = MDIFF) GLUCOSE [id number] 12:48:00 Test Item Value Reference Range Interpretation Comments GLUCOSE BEDSIDE (test 134 MG/DL 70-110 H Perfor med by certified code = GLUBED) power plant operator at [facility] [id number] 12:18:00 Test Item Value Reference Range Interpretation Comments ACT-ISTAT (test code 243 SEC 74-137 H Perform ed by certified = ACTI) power plant operator at [facility] GLUCOSE [id number] 10:12:00 Test Item Value Reference Range Interpretation Comments GLUCOSE BEDSIDE (test 178 MG/DL 70-110 H Perfor med by certified code = GLUBED) power plant operator at [facility] BASIC METABOLIC [id number] 15:01:00 Test Item Value Reference Range Interpretation [...] = 9.7 mg/dL 8.0-10.5 N CA) PROTHROMBIN [id number] 14:45:00 Test Item Value Reference Range Interpretation Comments PROTHROMBIN TIME 10.9 SECONDS 9.3-12.9 N PATIENT (test code = PTP) INTERNATIONAL NORMAL 1.0 0.8-1.2 N TARGET INR BY RATIO (test code = INDICATIO N Indication INR) INR1. Prophylax is of venous thrombos is 2.0 - 3.0 (orthoped ic surgery), Proph ylaxis of venous throm bosis (other than hig h-risk surgery), Treat ment of Deep Vein Thrombosis/Pulm onary Embolism, Preve ntion of systemic emb olism - Tissue heart va lves, Acute Myocardia l Infarction (to prevent systemic emboli sm), Valvular heart disease, Atrial Fibrillation, Bileaflet mecha nical valve in aortic position.2. Mec hanical prosthetic valv es (high risk), 2. 5 - 3.5 Presence of Lup us Anticoagulant o r Antiphospholipi d Antibodies, Pre vention of systemic emb olism - Acute Myocardia l Infarction (to prevent recurrent infar ct). CBC W/AUTO [id number] 14:37:00 Test Item Value Reference Range Interpretation [...] = 0.00 x10 3/uL 0.0-0.1 N NRBC#) Notes Date/Time Note Provider Source 2021-09-09 09:13:00-00:00 [id number] [place] [address] PATIENT NAME: ROBIN BLANCHARD ADMIT DATE: 09/09/21 ACCOUNT NO: [id number] ROOM NO: AGE: 76 REPORT TYPE: OPERATIVE REPORT SEX: F ADMITTING PHYSICIAN: ATTENDING PHYSICIAN:Gabriel Cruz MD OPERATION DATE: 09/09/2021 PROCEDURES PERFORMED: 1. Peripheral angiogram. 2. Balloon angioplasty of severe left SFA stenos is followed by placement of 2 covered stents, each one of them is 5 x 100 mm o verlapped them together and postdilated using a 5.0 x 150 balloon, hit the o verlap area. INDICATIONS: Severe peripheral vascular disease with significant pain of lower extremity claudication. ACCESS: Right femoral artery, closed with Perclo se. COMPLICATIONS: None. BLEEDING: Less than 10 mL. TOTAL SEDATION TIME: 65 minutes. DESCRIPTION OF PROCEDURE: After risks, benefits, and alternatives were explained, the patient agreed to proceed and sig leyla informed consent. The patient was brought into the cardiac catheteriza tion laboratory, prepped and draped in the usual sterile fashion. Then, we accessed the right femoral artery using micropuncture kit, fluoroscopy and ultraso und guidance and placed a 6-[place] sheath and crossover sheath over [place] [employer] wire into the distal aorta and crossed int o the left side and placed the wire in the proximal SFA and then took the [place] sheath out and pl aced a short 6-[place] sheath. Then, we performed the angio gram. I then took 5 x 100 mm balloon, did angioplasty in the area of stenosis and then the angiogram after that showed 3 areas of perforation that formed f istula to the vein, so we decided to place a covered stent to see those areas and 2 stents of 5 x 100 mm were placed to cover the are as of perforation and there were overlapped together and postdilated them using a 5 x 150 mm balloon. Final results were satisfactory and sealed all the perforated areas and then I took the sheath out and Perclose was used for closure with good hemo stasis. CONCLUSION: Successful balloon angioplasty follo wed by stent placement of the severe left SFA stenosis at multiple locations a s outlined above. PLAN: Continue Brilinta and aspirin and statin. Follow up with me in the office in 4 weeks. Dictated By: Gabriel Cruz MD PATIENT NAME: ROBIN BLANCHARD 108 WT: OP:EBONY/MARY/MERLE Conf#: [id number]/DID#: [id number] Authenticated by Gabriel Cruz MD On 02/03/2022 09:55:15 AM Electronically Signed by Gabriel Cruz MD on at 0955 PATIENT NAME: ROBIN BLANCHARD 108 2021-09-08 14:42:00-00:00 [id number] [place] [id number] PATIENT NAME: ROBIN BLANCHARD ADMIT DATE: 09/09/21 ACCOUNT NO: [id number] ROOM NO: AGE: 75 REPORT TYPE: eELECTROCARDIOGRAM REPORT SEX: F ADMITTING PHYSICIAN: ATTENDING PHYSICIAN:Gabriel Cruz MD Order: [id number] Test Reason : PREOP Test Date/Time Stamp: TueSep 08 2021 14:42:20 Blood Pressure : / mmHG Vent. Rate : 065 BPM Atrial Rate : 065 BPM P-R Int : 156 ms QRS Dur : 066 ms QT Int : 398 ms P-R-T Axes : -09 029 038 degre es QTc Int : 413 ms Sinus rhythm with premature atrial complexes Low voltage QRS Borderline ECG Confirmed by MD SANTACRUZ OMAR ([id number]) on 10:01:24 AM Referred By: Gabriel Cruz Confirmed by:JATIN CEE MD Electronically Signed by Jatin Santacruz MD on 0 09/09/21 at 1001 PATIENT NAME: ROBIN BLANCHARD 108 2021-05-20 12:34:00-00:00 [id number] [place] [address] PATIENT NAME: ROBIN BLANCHARD ADMIT DATE: 05/20/21 ACCOUNT NO: [id number] ROOM NO: AGE: 75 REPORT TYPE: eELECTROCARDIOGRAM REPORT SEX: F ADMITTING PHYSICIAN: ATTENDING PHYSICIAN:Gabriel Cruz MD Order: [id number] Test Reason : PCI Test Date/Time Stamp: TueMay 20 2021 12:34:31 Blood Pressure : / mmHG Vent. Rate : 079 BPM Atrial Rate : 079 BPM P-R Int : 138 ms QRS Dur : 068 ms QT Int : 380 ms P-R-T Axes : 000 020 018 degree s QTc Int : 435 ms Sinus rhythm with premature supraventricular com plexes Low voltage QRS Borderline ECG When compared with ECG of 18-MAY-2021 13:10, Significant changes have occurred Confirmed by MIGUEL DIANA MD ([id number]) on 05/22/19 8:22:07 AM Referred By: Gabriel Cruz Confirmed by:MIGUEL FRANCIS MD at 0822 PATIENT NAME: ROBIN BLANCHARD 321 2021-05-20 12:25:00-00:00 [id number] [place] [address] PATIENT NAME: ROBIN BLANCHARD ADMIT DATE: 05/20/21 ACCOUNT NO: [id number] ROOM NO: AGE: 75 REPORT TYPE: CARDIAC CATHETERIZATION REPORT SEX: F ADMITTING PHYSICIAN: ATTENDING PHYSICIAN:Gabriel Cruz MD PROCEDURE DATE: 05/20/2021 PROCEDURES PERFORMED: PCI of severe mid LAD stenosis using 3.0 x 24 mm Synergy drug-eluting stent. INDICATIONS: Known significant coronary artery d isease of the LAD. ACCESS: Right radial artery, 6-Estonian closed wit h TR band. COMPLICATIONS: None. BLEEDIN mL. TOTAL SEDATION TIME: 20 minutes. DESCRIPTION OF PROCEDURE: After risks, benefits, and alternatives were explained, the patient agreed to proceed and sig leyla informed consent. The patient was brought into the cardiac catheteriza tion laboratory, prepped and draped in usual sterile fashion. Then, we access ed the right radial artery using pediatric micropunctur e kit and placed 6-Estonian slender sheath and took a 6-Estonian XB3.5 guide into th e aortic root, engaged the left main and then I took standard views and took a sh ort Runthrough wire through the LAD into the distal vessel and then took a 3.0 x 15 mm NC ba lloon predilated lesion very well that expanded very well and I placed 3.0 x 24 mm Syne rgy drug-eluting stent, was inflated to high pressure to a size of 3.3. Angiography results afterwards were excellent with 0% residual stenosis and MICKY-3 f low, then I removed the guide and the sheath, placed TR band with good hemosta sis. CONCLUSION: Successful PCI of severe mid LAD carli nosis using a 3.0 x 24 mm Synergy drug-eluting stent, inflated to high pressure proximally to a size 3.3 mm. PLAN: The patient was loaded with Brilinta. We w ill continue Brilinta and aspirin and statin. Follow up in the office in 1 week. Dictated By: Gabriel Cruz MD WT: CATH:JURGEN/MARY/MERLE Conf#: [id number]/DID#: [id number] PATIENT NAME: ROBIN BLANCHARD 2321 Authenticated by Gabriel Cruz MD On 06/02/2021 10:55:58 AM Electronically Signed by Gabriel Cruz MD on at 1055 PATIENT NAME: ROBIN BLANCHARD 2321 2021-05-18 13:10:00-00:00 [id number] [place] [address] PATIENT NAME: ROBIN BLANCHARD ADMIT DATE: ACCOUNT NO: [id number] ROOM NO: AGE: 75 REPORT TYPE: eELECTROCARDIOGRAM REPORT SEX: F ADMITTING PHYSICIAN: ATTENDING PHYSICIAN:Gabriel Cruz MD Order: [id number] Test Reason : PREOP Test Date/Time Stamp: TueMay 18 2021 13:10:52 Blood Pressure : / mmHG Vent. Rate : 085 BPM Atrial Rate : 085 BPM P-R Int : 152 ms QRS Dur : 064 ms QT Int : 366 ms P-R-T Axes : 003 -08 007 degree s QTc Int : 435 ms Sinus rhythm with marked sinus arrhythmia Inferior infarct , age undetermined Abnormal ECG No previous ECGs available Confirmed by MIGUEL DIANA MD ([id number]) on 05/18/19 2:22:11 PM Referred By: Gabriel Cruz Confirmed by:MIGUEL FRANCIS MD at 5614 PATIENT NAME: ROBIN BLANCHARD 321
[2022-10-07] MEDS ORDERED: NA CHLORIDE 0.9% 100 ML ONE (11:12)
[2022-10-07] MEDS ORDERED: PIPERACIL/TAZO 3.375 GM VIAL IV ONE (11:12)
[2022-10-07 11:27] LABS: Absolute Lymphocytes (CBC) 0.5 K/uL (0.7-4.9); Hematocrit 21.1 % (36.0-45.0); Lymphocytes % 8.6 % (15.3-44.8); MCV 91.9 fL (80-100); MPV 10.5 fL (7.6-11.3)
[2022-10-07 11:30] LABS: Protime INR 0.98
[2022-10-07 11:50] LABS: Bilirubin Direct 0.2 mg/dL (0-0.2); Bilirubin Indirect, Calculated 0.3 mg/dL (0.2-0.8); Bilirubin Total 0.5 mg/dL (0.2-1.0); Magnesium 2.4 mg/dL (1.6-2.4); Potassium 4.3 mEq/L (3.5-5.1); Protein, Total 5.8 g/dL (6.4-8.2); Troponin High Sensitivity 7.9 pg/mL (<58.9)
--- NOTE | 2022-10-07 11:56 | RAD REPORT ---
EXAM DESCRIPTION: RAD - Chest Single View - 10/07/2022 11:37 am CLINICAL HISTORY: ABDOMINAL DISTENTION Chest pain. COMPARISON: Chest Single View dated 07/28/2021; Chest Pa And Lat (2 Views) dated 05/05/2021; Chest Pa A nd Lat (2 Views) dated 02/21/2017; Abdomen 1 View (KUB) dated 09/13/2016 FINDINGS: Portable technique limits examination quality. The lungs are emphysematous but grossly clear. The heart is mildly enlarged. No displaced fractures. IMPRESSION: No acute intrathoracic process suspected.
--- NOTE | 2022-10-07 12:17 | RAD REPORT ---
EXAM DESCRIPTION: CTAbdomen Pelvis W Contrast - 10/07/2022 12:03 pm CLINICAL HISTORY: Abdominal pain. Abd pain;GI bleed COMPARISON: No comparisons TECHNIQUE: Biphasic CT imaging of the abdomen and pelvis was performed with 100 ml non-ionic IV cont rast. All CT scans are performed using dose optimization technique as appropriate and may include automated exposure control or mA/KV adjustment according to patient size. FINDINGS: The lung bases are clear.Moderate hiatal hernia. The liver is diffusely fatty. Spleen, pancreas, adrenal glands are within normal limits. Nonobstructi ng calculi present left kidney, largest inferior pole measuring 8 mm. Benign cysts are present bilate rally. No hydronephrosis. No bowel obstruction, free air, free fluid or abscess. Aortoiliac atherosclerosis. Nonvisualized appe ndix. No evidence of significant lymphadenopathy. 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 Bilateral total hip arthroplasties. IMPRESSION: No acute intra-abdominal or pelvic finding. Left nephrolithiasis without hydronephrosis. Moderate hiatal hernia. 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
[2022-10-07] MEDS ORDERED: PANTOPRAZOLE 40 MG INJ ONE (14:04)
[2022-10-07] MEDS ORDERED: NA CHLORIDE 0.9% 1,000 ML ONE (14:04)
[2022-10-07] MEDS ORDERED: NA CHLORIDE 0.9% 250 ML ONE ×2 (14:04→16:42)
--- NOTE | 2022-10-07 14:13 | EDPHYS ---
Physician Documentation [facility] Name: Cornel Brewer Age: 76 yrs Sex: Female : 1945 Arrival Date: 10/07/2022 Time: 10:47 Bed 2 Private MD: ED Physician Alfred Gregorio HPI: 10/07 13:54 This 76 yrs old Female presents to ER via EMS with complaints of LOWER GI deysi BLEED. 13:54 The patient presents with abdominal pain in the lower abdomen, abdominal distention in deysi the upper abdomen, in the lower abdomen. Onset: The symptoms/episode began/occurred 2 day(s) ago. The patient presents to the emergency department with rectal bleeding, bright red blood with bowel movement, dark red blood with bowel movement. Onset: The symptoms/episode began/occurred 2 day(s) ago. Abdominal pain: located in the right lower quadrant and left lower quadrant. Modifying factors: The symptoms are alleviated by nothing, the symptoms are aggravated by nothing. The symptoms do not radiate. The symptoms are described as crampy. Modifying factors: The symptoms are alleviated by nothing, the symptoms are aggravated by nothing. Historical: - Allergies: 11:16 PHENOTHIAZINES; ko1 - Immunization history:: Adult Immunizations unknown. - Social history:: Smoking status: Patient denies any tobacco usage or history of. - Family history:: not pertinent. ROS: 13:54 Constitutional: Negative for fever, chills, and weight loss, Eyes: Negative for injury, deysi pain, redness, and discharge, ENT: Negative for injury, pain, and discharge, Neck: Negative for injury, pain, and swelling, Cardiovascular: Negative for chest pain, palpitations, and edema, Respiratory: Negative for shortness of breath, cough, wheezing, and pleuritic chest pain, Back: Negative for injury and pain, : Negative for injury, bleeding, discharge, and swelling, Neuro: Negative for headache, weakness, numbness, tingling, and seizure. 13:54 Abdomen/GI: Positive for abdominal pain, abdominal cramps, abdominal distension, of the right lower quadrant and left lower quadrant. 13:54 Skin: Positive for pallor. Exam: 13:54 Constitutional: This is a well developed, well nourished patient who is awake, alert, deysi and in no acute distress. Head/Face: Normocephalic, atraumatic. ENT: Nares patent. No nasal discharge, no septal abnormalities noted. Tympanic membranes are normal and external auditory canals are clear. Oropharynx with no redness, swelling, or masses, exudates, or evidence of obstruction, uvula midline. Mucous membranes moist. Neck: Trachea midline, no thyromegaly or masses palpated, and no cervical lymphadenopathy. Supple, full range of motion without nuchal rigidity, or vertebral point tenderness. No Meningismus. Chest/axilla: Normal chest wall appearance and motion. Nontender with no deformity. No lesions are appreciated. Cardiovascular: Regular rate and rhythm with a normal S1 and S2. No gallops, murmurs, or rubs. Normal PMI, no JVD. No pulse deficits. Respiratory: Lungs have equal breath sounds bilaterally, clear to auscultation and percussion. No rales, rhonchi or wheezes noted. No increased work of breathing, no retractions or nasal flaring. Back: No spinal tenderness. No costovertebral tenderness. Full range of motion. Female : Normal external genitalia. MS/ Extremity: Pulses equal, no cyanosis. Neurovascular intact. Full, normal range of motion. Neuro: Awake and alert, GCS 15, oriented to person, place, time, and situation. Cranial nerves II-XII grossly intact. Motor strength 5/5 in all extremities. Sensory grossly intact. Cerebellar exam normal. Normal gait. Psych: Awake, alert, with orientation to person, place and time. Behavior, mood, and affect are within normal limits. 13:54 Eyes: Periorbital structures: appear normal, no acute changes, Conjunctiva: pale. 13:54 ECG was reviewed by the Attending Physician. 13:54 Abdomen/GI: Inspection: abdomen appears normal, Bowel sounds: normal, Palpation: mild abdominal tenderness, Rectal exam: rectal tone normal, Stool: grossly bloody, hemorrhoid(s), are not appreciated, mass, is not appreciated, swelling, is not appreciated, tenderness, is not appreciated, Liver: no appreciated palpable abnormalities, Hernia: not appreciated. Vital Signs: 11:00 BP 81 / 43; Pulse 68; Resp 16; Temp 97.8(O); Pulse Ox 100% on R/A; ko1 11:17 BP 97 / 42; Pulse 79; Resp 16; Pulse Ox 100% ; ko1 12:03 BP 100 / 48; Pulse 79; Resp 16; Pulse Ox 100% on R/A; ld1 13:22 BP 104 / 45; Pulse 67; Resp 18; Pulse Ox 98% on R/A; ld1 14:46 BP 124 / 47; Pulse 76; Resp 18; Pulse Ox 99% on R/A; ld1 16:07 BP 94 / 44; Pulse 66; Resp 18; Pulse Ox 96% on R/A; ld1 17:52 BP 114 / 51; Pulse 76; Resp 18; Pulse Ox 100% on R/A; Pain 0/10; ld1 17:52 Pain Scale: Adult ld1 MDM: 10:52 Patient medically screened. deysi 10:53 Patient medically screened. deysi 14:02 Differential diagnosis: diverticulitis, hemorrhoids, hemorrhagic shock, varices, deysi Mesenteric ischemia or infarction, non-specific abd pain, pancreatitis, Peptic Ulcer Disease, Ureterolithiasis, urinary tract infection. Data reviewed: vital signs, nurses notes, lab test result(s), EKG, radiologic studies, CT scan, plain films. Consideration of Admission/Observation Escalation of care including admission/observation considered. I considered the following discharge prescriptions or medication management in the emergency department Medications were administered in the Emergency Department. See MAR. Independent interpretation of the following test(s) in the Emergency Department EKG: See my EKG interpretation above. Test considered but Not performed: Ultrasound NO ABD USG. Historians other than the Patient: EMS: EMS INFORMED. Care significantly affected by the following chronic conditions: Hypertension, ON ASA, PLAVIX. Counseling: I had a detailed discussion with the patient and/or guardian regarding: the historical points, exam findings, and any diagnostic results supporting the discharge/admit diagnosis, lab results, radiology results, the need to transfer to another facility, for higher level of care, [facility] does not immediately have the required specialist. 10/07 10:58 Order name: Basic Metabolic Panel; Complete Time: 13:31 deysi 10/07 10:58 Order name: CBC with Diff; Complete Time: 13:31 [facility] 10/07 10:58 Order name: LFT's; Complete Time: 13:31 [facility] 10/07 10:58 Order name: Magnesium; Complete Time: 13:31 [facility] 10/07 10:58 Order name: NT PRO-BNP; Complete Time: 13:31 [facility] 10/07 10:58 Order name: PT-INR; Complete Time: 13:31 [facility] 10/07 10:58 Order name: Troponin HS; Complete Time: 13:31 [facility] 10/07 10:58 Order name: Lipase; Complete Time: 13:31 [facility] 10/07 10:58 Order name: Type And Screen [facility] 10/07 10:59 Order name: Lactate w/ 2H reflex if indic.; Complete Time: 13:31 [facility] 10/07 13:49 Order name: Packed RBCs (Additional Unit) [facility] 10/07 13:49 Order name: Platelets, Leukored Pheresis [facility] 10/07 15:52 Order name: Lactate Sepsis 2 HR Follow-up; Complete Time: 15:52 [facility] 10/07 10:58 Order name: XRAY Chest (1 view); Complete Time: 13:31 [facility] 10/07 10:58 Order name: CT Abd/Pelvis - IV Contrast Only; Complete Time: 13:31 [facility] 10/07 10:58 Order name: EKG; Complete Time: 10:59 [facility] 10/07 10:58 Order name: Cardiac monitoring; Complete Time: 11:00 [facility] 10/07 10:58 Order name: EKG - Nurse/Tech; Complete Time: 11:32 [facility] 10/07 10:58 Order name: IV Saline Lock; Complete Time: 10:59 [facility] 10/07 10:58 Order name: Labs collected and sent; Complete Time: 11:10 [facility] 10/07 10:58 Order name: O2 Per Protocol; Complete Time: 11:00 [facility] 10/07 10:58 Order name: O2 Sat Monitoring; Complete Time: 11:00 [facility] 10/07 10:58 Order name: IV Saline Lock - Large Bore; Complete Time: 10:59 [facility] 10/07 13:32 Order name: Transfuse; Complete Time: 14:46 [facility] EC:54 Rate is 75 beats/min. Rhythm is regular. QRS [place] is Normal. MS interval is normal. QRS deysi interval is normal. QT interval is normal. No Q waves. T waves are Normal. No ST changes noted. Clinical impression: NSR w/ Non-specific ST/T Changes and No evidence of ischemia. Interpreted by me. Reviewed by me. Administered Medications: 11:10 Drug: Piperacillin-Tazobactam IVPB 3.375 grams Route: IVPB; Infused Over: 60 mins; ld1 Site: left antecubital; 14:11 Drug: Pantoprazole IVP 80 mg Route: IVP; Site: right antecubital; ld1 14:11 Drug: NS 0.9% IV 1000 ml Route: IV; Rate: 1 bolus; Site: right antecubital; ld1 14:46 Drug: NS 0.9% IV 1000 ml Route: IV; Rate: 1 bolus; Site: right antecubital; ld1 16:06 Drug: Insulin Regular Human IVP 7 units {Co-Signature: ll1 (Vale Gregory RN).} Route: ld1 IVP; Site: left antecubital; 16:06 Drug: Insulin Glargine Sub-Q 25 units Route: Sub-Q; Site: abdomen; ld1 Disposition Summary: 10/07/22 14:13 Transfer Ordered Transfer Location: [facility] deysi Reason: Higher level of care deysi Condition: Fair deysi Problem: new deysi Symptoms: have improved deysi Accepting Physician: TO [facility](10/07/22 18:09) ld Diagnosis - GI Bleed/ Gastrointestinal hemorrhage, unspecified - LOWER deysi - Anemia, unspecified deysi - Type 2 diabetes mellitus with hyperglycemia deysi Forms: - Medication Reconciliation Form deysi - SBAR form deysi Critical care time excluding procedures: 16:20 Critical care time: Bedside Care: 25 minutes, Consultation: 15 minutes, Family deysi Intervention: 5 minutes. Total time: 45 minutes Signatures: Dispatcher [employer] Alfred Thompson MD MD cha Sims, Lauren, RN RN ld1 Yaquelin Gonzales RN RN ko1 Vale Gregory RN ll1 Corrections: (The following items were deleted from the chart) 11:16 11:16 PSHx: Stented artery; ko1 ko1 15:56 14:13 [facility] 18:09 15:56 TO [facility] ld1
--- NOTE | 2022-10-07 14:13 | ER ---
[facility] Name: Cornel Brewer Age: 76 yrs Sex: Female : 1945 Arrival Date: 10/07/2022 Time: 10:47 Bed 2 Private MD: Diagnosis: GI Bleed/ Gastrointestinal hemorrhage, unspecified-LOWER;Anemia, unspecified;Type 2 diabetes mellitus with hyperglycemia Presentation: 10/07 11:00 Chief complaint: EMS states: patient was at [facility] and started "feeling funny", went ko1 to the bathroom and had a large amount of bright red blood come out rectally. She has had 4 iron treatments as recommended by her PCP due to "low blood of 7".She was supposed to have her 5th treatment tomorrow. Coronavirus screen: At this time, the client does not indicate any symptoms associated with coronavirus-19. Ebola Screen: No symptoms or risks identified at this time. Initial Sepsis Screen: Does the patient meet any 2 criteria? No. Patient's initial sepsis screen is negative. Does the patient have a suspected source of infection? No. Patient's initial sepsis screen is negative. Risk Assessment: Do you want to hurt yourself or someone else? Patient reports no desire to harm self or others. Onset of symptoms was October 07, 2022. 11:00 Method Of Arrival: EMS: [facility] ko1 11:00 Acuity: DARIO 3 ko1 Triage Assessment: 11:16 General: Appears in no apparent distress. comfortable, pale. Behavior is calm, ko1 cooperative, appropriate for age. Pain: Denies pain. Historical: - Allergies: 11:16 PHENOTHIAZINES; ko1 - Immunization history:: Adult Immunizations unknown. - Social history:: Smoking status: Patient denies any tobacco usage or history of. - Family history:: not pertinent. Screenin:[address] [facility] ED Fall Risk Assessment (Adult) History of falling in the last 3 months, ld1 including since admission No falls in past 3 months (0 pts). Abuse screen: Denies threats or abuse. Denies injuries from another. Nutritional screening: No deficits noted. Tuberculosis screening: No symptoms or risk factors identified. Assessment: 13:22 General: Appears in no apparent distress. comfortable, Behavior is calm, cooperative, ld1 appropriate for age. Pain: Denies pain. Neuro: Level of Consciousness is awake, alert, obeys commands, Oriented to person, place, time, situation. Cardiovascular: Capillary refill < 3 seconds Patient's skin is warm and dry. Rhythm is sinus rhythm. Respiratory: Airway is patent Respiratory effort is even, unlabored. GI: Abdomen is round non-distended. : No signs and/or symptoms were reported regarding the genitourinary system. EENT: No signs and/or symptoms were reported regarding the EENT system. Derm: No signs and/or symptoms reported regarding the dermatologic system. Musculoskeletal: No signs and/or symptoms reported regarding the musculoskeletal system. 14:47 Reassessment: Patient appears in no apparent distress at this time. No changes from ld1 previously documented assessment. Patient and/or family updated on plan of care and expected duration. Pain level reassessed. Patient is alert, oriented x 3, equal unlabored respirations, skin warm/dry/pink. Vital Signs: 11:00 BP 81 / 43; Pulse 68; Resp 16; Temp 97.8(O); Pulse Ox 100% on R/A; ko1 11:17 BP 97 / 42; Pulse 79; Resp 16; Pulse Ox 100% ; ko1 12:03 BP 100 / 48; Pulse 79; Resp 16; Pulse Ox 100% on R/A; ld1 13:22 BP 104 / 45; Pulse 67; Resp 18; Pulse Ox 98% on R/A; ld1 14:46 BP 124 / 47; Pulse 76; Resp 18; Pulse Ox 99% on R/A; ld1 16:07 BP 94 / 44; Pulse 66; Resp 18; Pulse Ox 96% on R/A; ld1 17:52 BP 114 / 51; Pulse 76; Resp 18; Pulse Ox 100% on R/A; Pain 0/10; ld1 17:52 Pain Scale: Adult ld1 ED Course: 10:52 Patient arrived in ED. deysi 10:53 Alfred Gregorio MD is Attending Physician. deysi 10:58 Yaquelin Gonzales, DAVID is Primary Nurse. ko1 11:10 Lactate w/ 2H reflex if indic. Sent. ld1 11:10 Type And Screen Sent. ld1 11:10 Lipase Sent. ld1 11:12 Basic Metabolic Panel Sent. ko1 11:12 CBC with Diff Sent. ko1 11:12 LFT's Sent. ko1 11:12 Magnesium Sent. ko1 11:12 NT PRO-BNP Sent. ko1 11:12 PT-INR Sent. ko1 11:12 Troponin HS Sent. ko1 11:16 Triage completed. ko1 11:16 Arm band placed on right wrist. Patient placed in an exam room, on a stretcher, on ko1 clinical research monitor, on pulse oximetry, Patient notified of wait time. 11:38 XRAY Chest (1 view) In Process Unspecified. EDMS 12:04 CT Abd/Pelvis - IV Contrast Only In Process Unspecified. EDMS 13:22 No provider procedures requiring assistance completed. ld1 13:22 Patient has correct armband on for positive identification. Placed in gown. Bed in low ld1 position. Call light in reach. Side rails up X2. personnel monitor on. Pulse ox on. NIBP on. Door closed. Noise minimized. Warm blanket given. 17:52 Patient transferred, IV remains in place. ld1 Administered Medications: 11:10 Drug: Piperacillin-Tazobactam IVPB 3.375 grams Route: IVPB; Infused Over: 60 mins; ld1 Site: left antecubital; 14:11 Drug: Pantoprazole IVP 80 mg Route: IVP; Site: right antecubital; ld1 14:11 Drug: NS 0.9% IV 1000 ml Route: IV; Rate: 1 bolus; Site: right antecubital; ld1 14:46 Drug: NS 0.9% IV 1000 ml Route: IV; Rate: 1 bolus; Site: right antecubital; ld1 16:06 Drug: Insulin Regular Human IVP 7 units {Co-Signature: ll1 (Vale Gregory RN).} Route: ld1 IVP; Site: left antecubital; 16:06 Drug: Insulin Glargine Sub-Q 25 units Route: Sub-Q; Site: abdomen; ld1 Medication: 13:22 VIS not applicable for this client. ld1 Outcome: 14:13 ER care complete, transfer ordered by MD. jo 17:52 Transferred by ground EMS to [facility]. ld1 17:52 Condition: stable 17:52 Instructed on the need for transfer. 18:09 Patient left the ED. ld1 Signatures: Dispatcher [employer] EDAlfred Keita MD MD cha Sims, Lauren RN RN ld1 Yaquelin Gonzales RN RN ko1 Vale Gregory RN ll1 Corrections: (The following items were deleted from the chart) 11:16 11:16 PSHx: Stented artery; ko1 ko1
[2022-10-07] MEDS ORDERED: ACETAMINOPHEN 325 MG TABLET ONE (14:37)
[2022-10-07] MEDS ORDERED: DIPHENHYDRAMINE 50 MG/ML VIAL ONE (14:37)
[2022-10-07] MEDS ORDERED: INSULIN GLARGINE 100 UNIT/ML SQ ONE (16:08)
[2022-10-07] MEDS ORDERED: INSULIN -REGULAR HUMAN 50 UNIT/0.5 ML ML ONE (16:09)
[2022-10-07] MEDS ORDERED: ONDANSETRON 4 MG (ODT) TAB ONE (16:42)
[2022-10-07 19:17] VITALS: TEMP 97.8
[2022-10-07 19:28] VITALS: BP 114/51; O2SAT 100
--- NOTE | 2022-10-09 16:24 | EKG ---
Test Date: 2022-10-07 Test Time: 11:18:38 [employer]: JESSICA MEASUREMENT RESULTS: Intervals: Rate: 75 [place]: 136 QRSD: 80 QT: 394 QTc: 439 [place]: P: [place]: 136 QRS: 31 T: 65 INTERPRETIVE STATEMENTS: Normal sinus rhythm with sinus arrhythmia Normal ECG Compared to ECG 07/28/2021 13:10:23 Myocardial infarct finding no longer present Electronically Signed On 10-09-22 16:20:48 CDT by Gabriel Cruz
== END 2022-10-07 18:09 | disposition short-term general hospital (02) ==
LOC: ER 10:47
PROC: 30233R1 Transfusion of Nonautologous Platelets into Peripheral Vein, Percutaneous Approach (ICD-10-PCS; principal; 2022-10-07)
PROC: 30233N1 Transfusion of Nonautologous Red Blood Cells into Peripheral Vein, Percutaneous Approach (ICD-10-PCS; 2022-10-07)
DX: D64.9 Anemia, unspecified (principal); E11.65 Type 2 diabetes mellitus with hyperglycemia; Z88.8 Allergy status to other drugs, medicaments and biological substances
CPT/HCPCS: 93005; 85025; 80048; 36415; 86900; 83735; 86850; 85610; 86901; 80076; 83605 ×2; 86920 ×2; 84484; 83690; 83880; 74177; 71045; 96372; 99285; 36430; Q9967; J1815; Q0162; J1200; J2543; C9113; P9035; P9016 ×2; J7050 ×2; J7030; P9100

== ENCOUNTER 2023-01-05 13:35 | Emergency (ER) | payer OTHER, BC ==
--- OUTSIDE RECORDS SUMMARY | 2023-01-05 13:38 | XMS REPORT | Clinical Summary ---
:1945 Author Organization [facility] MD Patel [facility] Address [address] [place] [address] Care Team Providers Name Role Phone Bibi Noriega MD PhD Primary Care Provider [phone] Allergies Not on File Medications Not on file Active Problems Not on file Encounters Date Type Specialty Care Team Description 12/15/2022 Lab Requisition Alfredo Patel MD Eze, MD Hilda 12/09/2022 Travel 12/03/2022 Orders Only Colorectal Surgery Vidya Toure, Carcinoma , NOS of OBIE Mayer colon, NOS (Luisa david Dx) 12/02/2022 Travel after 01/05/2022 Social History Tobacco Use Types Packs/Day Years Used Date Smoking Tobacco: Never Assessed Sex Assigned at Date Recorded Not on file Job Start Date Occupation Industry Not on file Not on file Not on file Last Filed Vital Signs Not on file Plan of Treatment Health Maintenance Due Date Last Done Comments COVID-19 Vaccination (#1) 05/17/1946 Results Not on fileafter 01/05/2022 Insurance Payer Benefit Plan / Subscriber ID Effective Dates Phone Addre ss Type Group MEDICARE MEDICARE PART [id number] 2011-Mily [phone] [facility] Medicare A AND B t 2 SOLUTIONS [address] [place] [id number] Care Teams Tool Tender Relationship Specialty Start Date End Date Bibi Noriega MD PhD PCP - General Surgical Oncology 12/02/[address] [place] [id number]
--- OUTSIDE RECORDS SUMMARY | 2023-01-05 13:40 | XMS REPORT | Continuity of Care Document ---
:1945 Author Organization [facility] t Address [address] [place] [address] Care Team Providers Name Role Phone Leann LEVIN PhD, Bibi Primary Care Physician [phone] Harman Leon Attending Clinician Unavailable Alfredo Patel MD Attending Clinician Hilda Garcia MD Attending Clinician Leyla Lowe Attending Clinician Judith Stafford MD Attending Clinician Serg Snowden MD Attending Clinician Irene Guzman MD Attending Clinician [phone] IRENE GUZMAN Attending Clinician Unavailable Gabriel Cruz Attending Clinician Unavailable Harman Leon Admitting Clinician Unavailable JUDITH STAFFORD Admitting Clinician Unavailable Physician, No Primary or Family Admitting Clinician Unavaila ble Payers Payer Name Policy Type Policy Number Effective Date Expiration Date S ource Problems Condition Condition Condition Status Onset Resolution Last Treating Co mments Source Name Details Category Date Date Treatment Clinician Date CAD CAD Disease Recurre [facility]cor[facility] nce 10-07 [facility] artery artery 00:00: Medical disease) disease) 00 Center Diabetes Diabetes Disease Recur[facility] HTN HTN Disease Recurre [facility] (hypertens (hypertens nce 10-07 Tiffanie kes ion) ion) 00:00: Medical 00 [place] Anemia Anemia Disease Recurre [facility] 10[facility]07 [facility] 00:[facility]: Medical 00 [place] Hematochez Hematochez Disease Active [facility] ia ia 10-07 [facility] 00:00: Medical 00 [place] Weight Weight Disease Active [facility] loss loss 10-07 [facility] 00:00: Medical 00 [place] Allergies, Adverse Reactions, Alerts Allergy Allergy Status Severity Reaction(s) Onset Inactive Treating Comm ents Source Name Type Date Date Clinician Phenothi Propensi Active [facility] azines ty to 10-07 [facility] adverse 00:00: Medical reaction 00 [place] s PHENOTHI Allergy Active [facility] AZINES 10-07 [facility] 00:00: Medical 00 [place] Phenothi DA Active [facility] CHANGES 2-14 Clear 00:00: Willis [address] [place] [address] NO KNOWN Allergy Active BERTIN ALLERGSONDRA S Social History Social Habit Start Date Stop Date Quantity Comments Source History of tobacco Passive smoker [facility] use [facility] Tobacco use and 2022-10-07 2022-10-07 Smokeless tobacco [facility] exposure 00:00:00 00:00:00 non-user [facility] Cigarette 2022-10-07 2022-10-[address] [facility] pack-years 00:00:00 00:00:00 [facility] Alcohol intake 2022-10-07 2022-10-[address] [facility] 00:00:00 00:00:00 [facility] Cigarettes smoked 2022-10-07 2022-10-[address] [facility] current (pack per 00:00:00 00:00:00 Medical Center day) - Reported Sex Assigned At [address] [address] Tiffanie kes 00:00:00 00:00:00 Medical Center Smoking Status Start Date Stop Date Source Ex-smoker 2022-10-07 00:00:00 2022-10-07 00:00:00 [facility] Medications Ordered Filled Start Stop Current Ordering Indication Dosage Frequency Signature Comments Components Source Medication Medication Date Date Medication? Clinician (SIG) Name Name empaglifloz 2023-0 Yes 25mg QD Take [address] [facility] in 7-08 tablet (25 [facility] (JARDIANCE) 18:56: mg total) M edical 25 mg 01 by mouth Center tablet daily. metFORMIN 2023-0 Yes 1000mg Take [address] [facility] (GLUCOPHAGE 7-08 tablet [facility] ) 1000 MG 18:56: (1,000 mg Med ical tablet 01 total) by Center mouth 2 (two) times daily with breakfast and dinner. zolpidem 2023-0 Yes 5mg Take [address] [facility] (AMBIEN) 5 7-08 tablet (5 [facility] MG tablet 18:56: mg total) Med ical 01 by mouth Center every night as needed for Insomnia. Max Daily Amount: 5 mg atorvastati 2023-0 Yes 40mg QD Take [address] [facility] [address] n (LIPITOR) 7-08 tablet (40 Tiffanie kes 40 MG 18:56: mg total) Medical tablet 01 by mouth Center daily. empaglifloz 2023-0 Yes 25mg QD Take [address] [facility] in 7-08 tablet (25 [facility] (JARDIANCE) 18:56: mg total) M edical 25 mg 01 by mouth Center tablet daily. metFORMIN 2023-0 Yes 1000mg Take [address] [facility] (GLUCOPHAGE 7-08 tablet [facility] ) 1000 MG 18:56: (1,000 mg Med ical tablet 01 total) by Center mouth 2 (two) times daily with breakfast and dinner. zolpidem 2023-0 Yes 5mg Take [address] [facility] (AMBIEN) 5 7-08 tablet (5 [facility] MG tablet 18:56: mg total) Med ical 01 by mouth Center every night as needed for Insomnia. Max Daily Amount: 5 mg atorvastati 2023-0 Yes 40mg QD Take [address] [facility] [address] n (LIPITOR) 7-08 tablet (40 Tiffanie kes 40 MG 18:56: mg total) Medical tablet 01 by mouth Center daily. clopidogreL 2023-0 2023- No 75mg QD Take [address] [facility] [address] (PLAVIX) 75 10-09-07 tablet (75 L ukes mg tablet 18:56: 00:00 mg total) Me dical 01 :00 by mouth Center daily. aspirin 81 0 2022- No 81mg QD Take [address] [facility] MG chewable 10-09- tablet (81 L ukes tablet 18:56: 00:00 mg total) Medic al 01 :00 by mouth Center daily. metoprolol 2022- No 50mg QD Take [address] [facility] succinate 10-09- tablet (50 Eliecer es (TOPROL-XL) 18:56: 00:00 mg total) Medical 50 MG 24 hr 01 :00 by mouth Cent er tablet daily. clopidogreL 2022- No 75mg QD Take [address] [facility] [address] (PLAVIX) 75 10-09- tablet (75 L ukes mg tablet 18:56: 00:00 mg total) Me dical 01 :00 by mouth Center daily. aspirin 81 2022- No 81mg QD Take [address] [facility] MG chewable 10-09- tablet (81 L [facility]kes tablet 18:56: 00:00 mg total) Medic al 01 :00 by mouth Center daily. metoprolol 2022- No 50mg QD Take [address] [facility] succinate 10-09 tablet (50 Eliecer es (TOPROL-XL) 18:56: 00:00 mg total) Medical 50 MG 24 hr 01 :00 by mouth Cent er tablet daily. digoxin 2023- Yes 250ug QD Take [address] [facility] (LANOXIN) 10-08 tablet [facility] 0.25 MG 00:00: 23:59 (250 mcg Medic al tablet 00 :00 total) by Center mouth daily. digoxin 2023- Yes 250ug QD Take [address] [facility] [address] (LANOXIN) 10-08- tablet [facility]ukes 0.25 MG 00:00: 23:59 (250 mcg Medic al tablet 00 :00 total) by Center mouth daily. digoxin 2022- No 250ug QD Take [address] [facility] (LANOXIN) 10-08- tablet [facility]ukes 0.25 MG 00:00: 00:00 (250 mcg Medic al tablet 00 :00 total) by Center mouth daily. digoxin 250ug QD Take 1 St (LANOXIN) 10-08 tablet [facility] 0.25 MG 00:00: 00:00 (250 mcg Medic al tablet 00 :00 total) by Center mouth daily. Vital Signs Vital Name Observation Time Observation Value Comments Source WEIGHT 2022-10-07 19:15:00 66.18 kg HEIGHT 2022-10-07 19:15:00 158.8 cm WEIGHT 2022-10-07 19:15:00 66.18 kg HEIGHT 2022-10-07 19:15:00 158.8 cm WEIGHT 2022-10-07 19:15:00 66.18 kg HEIGHT 2022-10-07 19:15:00 158.8 cm Systolic blood 2022-10-08 11:06:00 90 mm[Hg] [facility] Diastolic blood 2022-10-08 11:06:00 47 mm[Hg] [facility] Heart rate 2022-10-08 11:06:00 59 /min [facility] Body temperature 2022-10-08 10:54:00 36.83 Shae [facility] Respiratory rate 2022-10-08 10:54:00 19 /min [facility] Oxygen saturation in 2022-10-08 10:54:00 98 /min [facility] Arterial blood by Medical Ce nter Pulse oximetry Body height 2022-10-07 19:15:00 158.8 cm [facility] Body weight 2022-10-07 19:15:00 66.18 kg [facility] BMI 2022-10-07 19:15:00 26.26 kg/m2 [facility] Procedures Procedure Date / Time Performing Clinician Source Performed [id number] [id number] 2022-12-30 [facility] [id number] 2022-12-30 [facility] W/PLT COUNT & AUTO 2022-10-08 07:46:[address] [facility] CBC W/PLT COUNT & AUTO 2022-10-08 07:46:[address] [facility] BASIC METABOLIC PANEL 2022-10-08 06:30:00 Drea [facility] CBC W/PLT COUNT & AUTO 2022-10-08 06:30:00 Fegail [facility] CBC W/PLT COUNT & AUTO 2022-10-08 06:30:00 Drea [facility] ECG 12-LEAD 2022-10-08 02:24:25 Unknown, Hl7 [facility] ECG 12-LEAD 2022-10-08 02:24:25 Fegail [facility] ECG 12-LEAD 2022-10-08 02:24:25 Unknown, Hl7 Doctor [facility] ABORH, MANUAL 2022-10-07 23:26:00 Christie Correia [facility] TYPE AND SCREEN, 2022-10-07 22:45:00 Leokathy [facility] PROTHROMBIN TIME/INR 2022-10-07 21:41:00 Judith Stafford [facility] CBC W/PLT COUNT & AUTO 2022-10-07 21:41:00 Judith Stafford [facility] CBC W/PLT COUNT & AUTO 2022-10-07 21:41:00 Judith Stafford [facility] LACTIC ACID, VENOUS 2022-10-07 21:41:00 Judith Stafford [facility] COMPREHENSIVE METABOLIC 2022-10-07 21:41:[address] [facility] APTT 2022-10-07 21:41:00 Judith Stafford [facility] POCT-GLUCOSE METER 2022-10-07 20:54:00 [facility] EKG-SCANNED 2022-10-07 00:00:00 Provider, Default [facility] Plan of Care Planned Activity Planned Date Details Comments Source Future Scheduled 2022-12-15 COVID-19 Vaccination [facility] [place] Test 14:11:47 (#1) [code = COVID-19 MD [facility] hilario Cancer Vaccination (#1)] Center Future Scheduled 2022-12-[address] [facility] Test 00:00:00 (#1) [code = [facility] Influenza Vaccine (#1)] Future Scheduled 2022-12-[address] [facility] Test 00:00:00 (#1) [code = [facility] Influenza Vaccine (#1)] Future Scheduled 2022-10-[address] [facility] Test 00:00:00 [facility] (procedure) [code = 06462735] Future Scheduled 2022-10-[address] [facility] Test 00:00:00 [facility] (procedure) [code = 69066229] Future Scheduled 2022-04-[address] [facility] Test 00:00:00 (12+) [code = [facility] DEPRESSION SCREENING (12+)] Future Scheduled 2022-04-04 FALLS RISK SCREENING [facility] Test 00:00:00 [code = FALLS RISK Medical C enter SCREENING] Future Scheduled 2022-04-[address] [facility] Test 00:00:00 (12+) [code = [facility] DEPRESSION SCREENING (12+)] Future Scheduled 2022-04-04 FALLS RISK SCREENING [facility] Test 00:00:00 [code = FALLS RISK Medical C enter SCREENING] Future Scheduled 2012-11-[address] [facility] Test 00:00:00 WELLNESS (YEAR 2 or Medical Center FIRST YEAR if no IPPE) [code = MEDICARE ANNUAL WELLNESS (YEAR 2 or FIRST YEAR if no IPPE)] Future Scheduled 2012-11-[address] [facility] Test 00:00:00 WELLNESS (YEAR 2 or Medical Center FIRST YEAR if no IPPE) [code = MEDICARE ANNUAL WELLNESS (YEAR 2 or FIRST YEAR if no IPPE)] Future Scheduled 1996 SHINGLES VACCINES ([address] [facility] Test 00:00:00 of 2) [code = Medical Center SHINGLES VACCINES (1 of 2)] Future Scheduled 1996 SHINGLES VACCINES ([address] [facility] Test 00:00:00 of 2) [code = Medical Center SHINGLES VACCINES (1 of 2)] Future Scheduled 1965 DTAP/TDAP/TD VACCINES [facility] Test 00:00:00 (1 - Tdap) [code = Medical C enter DTAP/TDAP/TD VACCINES (1 - Tdap)] Future Scheduled 1965 DTAP/TDAP/TD VACCINES [facility] Test 00:00:00 (1 - Tdap) [code = Medical C enter DTAP/TDAP/TD VACCINES (1 - Tdap)] Future Scheduled 1964 HEPATITIS C SCREENING [facility] Test 00:00:00 [code = HEPATITIS C Medical Center SCREENING] Future Scheduled 1964 HEPATITIS C [facility]CRE[facility]ING [facility] Test 00:00:00 [code = HEPATITIS C Medical Center SCREENING] Future Scheduled [address] [facility] Test 00:00:00 Counseling and Medical Cente r Screening (12+) [code = Tobacco Cessation Counseling and Screening (12+)] Future Scheduled [address] [facility] Test 00:00:00 Counseling and Medical Cente r Screening (12+) [code = Tobacco Cessation Counseling and Screening (12+)] Future Scheduled [address] EYE EXAM [facility] Test 00:00:00 [code = DIABETIC EYE Medical Center EXAM] Future Scheduled [address] [facility] Test 00:00:00 examination Medical Center (regime/therapy) [code = 088971039] Future Scheduled 1956 Urine screening for [facility] Test 00:00:00 protein (procedure) Medical Center [code = 234361952] Future Scheduled [address] EYE EXAM [facility] Test 00:00:00 [code = DIABETIC EYE Medical Center EXAM] Future Scheduled [address] [facility] Test 00:00:00 examination Medical Center (regime/therapy) [code = 623604934] Future Scheduled 1956 Urine screening for [facility] Test 00:00:00 protein (procedure) Medical Center [code = 135935506] Future Scheduled 1952 PNEUMOCOCCAL 65+ YRS [facility] Test 00:00:00 (1 - PCV) [code = Medical Ce nter PNEUMOCOCCAL 65+ YRS (1 - PCV)] Future Scheduled 1952 PNEUMOCOCCAL 65+ YRS [facility] Test 00:00:00 (1 - PCV) [code = Medical Ce nter PNEUMOCOCCAL 65+ YRS (1 - PCV)] Future Scheduled 1946-05[birth year]17 COVID-19 VACCINE (#1) [facility] Test 00:00:00 [code = COVID-[address] VACCINE (#1)] Future Scheduled 1946-05-17 COVID-19 VACCINE (#1) [facility] Test 00:00:00 [code = COVID-[address] VACCINE (#1)] Future Scheduled 1945 DXA SCAN [code = DXA [facility] Test 00:00:00 SCAN] [facility] Future Scheduled 1946 DXA SCAN [code = DXA [facility] Test 00:00:00 SCAN] [facility] Encounters Start End Encounter Admission Attending Care Care Encounter Source Date/Time Date/Time Type Type Clinicians Facility Department ID 2022-12-30 2023-01-02 Inpatient EL Carolyn [facility] [id number] [facility] 05:36:00 17:32:00 , Harman 34 Cl [facility] 2022-12-15 2022-12-15 Lab Alfredo Patel 1.2.840.1 [id number] Univers 00:00:00 00:00:00 Hilda Gannon 78707.1.1 ity of n 3.412.2.7 [place] .3.683768 .8 [facility] 2022-12-09 2022-12-09 Travel 1.2.840.1 [id number] Univers 00:00:00 00:00:00 86606.1.1 350.1.13.41 ity of 3.412.2.7 [place].698 [place] .3.122050 084.8 MD Cline8 [facility] 2022-12-03 2022-12-03 Flavio Dasilva 1.2.840.1 [id number] Univers 00:00:00 00:00:00 Only Toure, 75289.1.1 ity of [place] 3.412.2.7 [place] .3.726127 .8 [facility] 2022-12-02 2022-12-02 Travel 1.2.840.1 [id number] [id number] Univers 00:00:00 00:00:00 81995.1.1 350.1.13.41 ity of 3.412.2.7 [place].698 [place] .3.533878 084.8 .8 [facility] 2022-10-07 2022-10-08 [facility] [id number] [facility] 19:21:00 18:56:00 Encounter Serg Snowden [facility] 2022-10-07 2022-10-08 [place] [facility] [id number] 19:21:00 18:56:00 Encounter Serg Snowden [facility] 2022-10-07 2022-10-08 [facility] [id number] [facility] 19:21:00 18:56:00 [facility] 2022-10-08 2022-10-08 Orders [facility] [id number] 00:00:00 00:00:00 Only [facility] 2022-10-08 2022-10-08 Orders [facility] [id number] 00:00:00 00:00:00 Only [facility] 2022-10-07 2022-10-07 Travel [facility] [id number] [facility] 00:[facility]:00 00:00:00 [facility] 2022-10-07 2022-10-07 Travel [facility] [id number] [facility] 00:00:00 00:00:00 [facility] 2021-09-09 2021-09-09 Outpatient SHARA Salas [id number] [facility] 05:13:00 05:13:00 Gabriel [address] [facility] 2021-09-09 2021-09-09 Outpatient SHARA Salas [facility] [id number] [facility] 05:13:00 05:13:00 Gabriel 08 [facility] 2021-05-20 2021-05-20 Inpatient SHARA Salas [facility] [id number] [facility] 05:20:00 05:20:00 Gabriel 21 [facility] Results Test Description Test Time Test Comments Results Result Comments Source SURGICAL 2023-01-03 12:57:00 Test Item Value Reference Range Interpretation Nico rosas SURGICAL RUN DATE: (test 01/03/23 [facility] GE 1 RUN TIME: 1257 Specimen Inquiry RUN USER: INTERFACE code = PATIENT: SR) ROBIN BLANCHARD [id number] LOC: G.5WS U #: [id number] AGE/SX: 77/F ROOM: [facility] RE12/30/22[place]STON DR: Harman Leon : 47 BED: 1 DIS: 01/02/23 STATUS: DIS IN TLOC: SPEC #: [id number] RECD: 12/31/221004 STATUS: SKIP MCA #: [id number] RADHA: 12/30/22- SUBM DR: Harman Leon MD E NTERED: 12/31/22 SP TYPE: SURGICAL OTHR DR: No Primary or Family Physician Stefania Hitchcock MD, Rakesh MDORDERED: [id number], ANATOMIC SPEC, [id number] COPIES TO: No Primary or Family Physician Stefania Hitchcock MD [address] [place], [place] [id number] Alin Gonzales MD [address] [facility] [address] [place], [place] [address] Harman Leon MD [address] [place] [address] [email or web address] PROCEDURES: [id number] (12/31/22) M1193 (01/03/23) TISSUES: A. COLON NOS - TRANS AND OMENTUM CAP CANCER SUMMARY COLON AND RECTUM: Resection, Including Transan al Disk Excision of Rectal Neoplasms 2020 Version 4.2.0.1 SPECIMENProcedure: Partial c olectomyMacroscopic Evaluation of Mesorectum (required for rectal cancers): N/ATUMORTumor Site: Transver se colonHistologic Type: AdenocarcinomaHistologic Grade: R6Hfxik Size: 3.8 cmMultiple Primary Sites (e. g., hepatic flexure and transverse colon) : N/ATumor Extent: Invades pericolonic soft tissueMacro scopic Tumor Perforation: Not identified CONTINUED ON NEXT PAGE RUN DATE: 01/03/23 Makayla MCGEE 2 RUN TIME: 1257 Specimen Inquiry RUN USER: INTERFACE SPEC #: [id number] PATIENT: ROBIN BLANCHARD #[id number] (Continued) CAP CANCER SUMMARY (Continue d) Lymphovascular Invasion: Suspicious for lymphovascular invasionPerineural Invasion: Not identifiedTrea tment Effect : No known presurgical therapyMARGINS Margin Status for Invasive Carcinoma: Negative for tumor Distance from Invasive Carcinoma to Radial (Circumferential) Margin (required forrectal t umors) : N/A Distance from Invasive Carcinoma to Closest Mucosal Margin (relevant and required onlyf or transanal disc excisions) : N/A Margin(s) Involved by Invasive Carcinoma: N/A Margin Status for Non-In vasive Tumor : N/A Margin(s) Involved by High-Grade Dysplasia / Intramucosal Carcinoma: N/A Margin(s) Inv olved by Low-Grade Dysplasia : N/AREGIONAL LYMPH NODES Regional Lymph Node Status: Negative for tumor N umber of Lymph Nodes with Tumor: 0 Number of Lymph Nodes Examined : 19Tumor Deposits Number of Tumor Dep osits: 0DISTANT METASTASIS Distant Site(s) Involved, if applicable: N/APATHOLOGIC STAGE CLASSIFI CATION (pTNM, AJCC 8th Ed.)TNM Descriptors: N/A pT Category: T3 pN Category: N0 pM Category (required onl y if confirmed pathologically): N/AADDITIONAL FINDINGS: NoneSPECIAL STUDIES: Block (E) can be used for an cillary tests if needed. MMR test can beperformed upon clinical request if not available from the biops y case from outsideinstitution.COMMENTS Comment(s): None. 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 MMR test can be performed on block (E) upon clinical request if the test/test result notavailable from biopsy case. CONTINUED ON NEXT PAGE RUN DATE: 01/03/23 [facility] OBIE GE 3 RUN TIME: 1257 Specimen Inquiry RUN USER: INTERFACE SPEC #: [id number] PATIENT: ROBIN BLANCHARD #[id number] (Continued) GROSS DESCRIPTION Received i n formalin labeled "transverse colon and omentum" include a segment of partialcolectomy specimen wi thout orientation (12 cm in length, 3 cm in diameter) with adhesedomentum (17.5 x 16 x 2.5 cm). The se jessica is poole glistening, mostly and wrapped withadipose tissue. The mucosa is remarkable for a sessile mas s (3.8 x 3 cm), 3.5 cm toclosest to resection margin, over 7 cm to mesenteric resection margin (inked black). Serial sections of the omentum do not reveal hemorrhage, necrosis, or discrete mass l esion. Director Medical Science sections submitted: (A) margins of resection; (B) mesenteric margin,perpendicu lar; (C)-(F) mass; (G)-(K) mesenteric lymph nodes; (L)-(M) random omentum. Technical component performe d at [address], [place] [address] Unless gross only, the diagnosis is based upon microscopic examination.Immunohistochemi stry: This test was developed and its performance characteristicsdetermined by this laboratory. It has n ot been approved nor does it need approvalby the [place] FDA. Appropriate positive and negative contro ls are reviewed and judgedto be acceptable for performedimmunohistochemistry and/or special stains. This laboratoryis certified under the Clinical Laboratory Improvement Amendments (CLIA-88) as qualified toper form high complexity clinical laboratory testing. CLINICAL INFORMATION HEPATIC FLEXURE, COLON CANCER Signed Murray Ruiz 1257 END OF REPORT CBC W/AUTO [id number] 08:14:00 Test Item Value Reference Range Interpretation Comments WHITE BLOOD CELL (test code = 6.6 x10 3/uL 4.5-11.0 N WBC) RED BLOOD CELL (test code = 4.21 x10 6/uL 3.54-5.02 N RBC) HEMOGLOBIN (test code = HGB) 12.4 g/dL 11.0-15.0 N HEMATOCRIT (test code = HCT) 40.9 % 33.0-45.0 N MEAN CELL VOLUME (test code = 97.1 fL 81.0-99.0 N MCV) MEAN CELL HGB (test code = MCH) 29.5 pg 27.0-33.0 N MEAN CELL HGB CONCETRATION 30.3 g/dL 33.0-37.0 L (test code = MCHC) RED CELL DISTRIBUTION WIDTH CV 13.7 % 11.5-14.5 N (test code = RDW) RED CELL DISTRIBUTION WIDTH SD 48.1 fL 37.0-54.0 N (test code = RDW-SD) PLATELET COUNT (test code = 276 x10 3/uL 150-400 N PLT) MEAN PLATELET VOLUME (test code 11.3 fL 7.0-9.0 H = MPV) NEUTROPHIL % (test code = NT%) 68.2 % 56.0-77.0 N IMMATURE GRANULOCYTE % (test 0.3 % 0.0-2.0 N code = IG%) LYMPHOCYTE % (test code = LY%) 14.9 % 14.0-32.0 N MONOCYTE % (test code = MO%) 11.7 % 4.8-9.0 H EOSINOPHIL % (test code = EO%) 4.1 % 0.3-3.7 H BASOPHIL % (test code = BA%) 0.8 % 0.0-2.0 N NUCLEATED RBC % (test code = 0.0 % 0-0 N NRBC%) NEUTROPHIL # (test code = NT#) 4.48 x10 3/uL 2.0-7.6 N IMMATURE GRANULOCYTE # (test 0.02 x10 3/uL 0.00-0.03 N code = IG#) LYMPHOCYTE # (test code = LY#) 0.98 x10 3/uL 1.0-3.8 L MONOCYTE # (test code = MO#) 0.77 x10 3/uL 0.1-0.8 N EOSINOPHIL # (test code = EO#) 0.27 x10 3/uL 0.0-0.2 H BASOPHIL # (test code = BA#) 0.05 x10 3/uL 0.0-0.2 N NUCLEATED RBC # (test code = 0.00 x10 3/uL 0.0-0.1 N NRBC#) MANUAL DIFF REQUIRED (test code NO = MDIFF) BASIC METABOLIC [id number] 07:38:00 Test Item Value Reference Range Interpretation Comments SODIUM (test code = 139 mEq/L 134-147 N NA) POTASSIUM (test code 4.0 mEq/L 3.4-5.0 N = K) CHLORIDE (test code 105 mEq/L 100-108 N = CL) CARBON DIOXIDE (test 30 mEq/l 21-33 N code = CO2) ANION GAP (test code 9 0-20 N = GAP) GLUCOSE (test code = 128 mg/dL 77-141 NOTE: N EW NORMAL RANGE GLU) BLOOD UREA NITROGEN 8 mg/dL 7-25 NOTE: NE W NORMAL RANGE (test code = BUN) GLOMERULAR 93.0 70-80 H The Glomerular FILTRATION RATE Filtration R ate is a (test code = GFR) calculated parameterbased on serum Creatinine, pat ient age and sex. GFR va luesless than 60 mL/min/ 1.73 square meters a re indicative ofCh ronic Kidney Disease. Values less than 15 mL/min/1.73squa re meters indicate Kidney failure. The calculation forGFR is based on the CKD-EPI (2020) calculat ion. This formulais race indifferent and is the recommended for oumar for GFRby the [facility] Kidney Foundati on for Adults.The GFR will not calculate if th e sex is unknown or if thepatient's ag e is <18 years. CREATININE (test 0.6 mg/dL 0.6-1.3 N code = CREAT) CALCIUM (test code = 8.8 mg/dL 8.0-10.5 N CA) [id number] 07:38:00 Test Item Value Reference Range Interpretation Comments PHOSPHOROUS (test code = PHOS) 1.4 MG/DL 2.5-4.9 L [id number] 07:38:00 Test Item Value Reference Range Interpretation Comments MAGNESIUM (test code = 1.50 mg/dL 1.6-2.6 L NOTE: NEW NORMAL MAG) RANGE BASIC METABOLIC [id number] 10:19:00 Test Item Value Reference Range Interpretation Comments SODIUM (test code = 134 mEq/L 134-147 N NA) POTASSIUM (test code 4.2 mEq/L 3.4-5.0 = K) CHLORIDE (test code 105 mEq/L 100-108 N = CL) CARBON DIOXIDE (test 28 mEq/l 21-33 N code = CO2) ANION GAP (test code 5 0-20 N = GAP) GLUCOSE (test code = 184 mg/dL 77-141 H NOTE: N EW NORMAL RANGE GLU) BLOOD UREA NITROGEN 5 mg/dL 7-25 L NOTE: NE W NORMAL RANGE (test code = BUN) GLOMERULAR 89.6 70-80 H The Glomerular FILTRATION RATE Filtration R ate is a (test code = GFR) calculated parameterbased on serum Creatinine, pat ient age and sex. GFR va luesless than 60 mL/min/ 1.73 square meters a re indicative ofCh ronic Kidney Disease. Values less than 15 mL/min/1.73squa re meters indicate Kidney failure. The calculation forGFR is based on the CKD-EPI (2020) calculat ion. This formulais race indifferent and is the recommended for oumar for [facility]FRby the [facility] for Ad[facility].The GFR will not calculate if th e sex is unknown or if thepatient's ag e is <18 years. CREATININE (test 0.7 mg/dL 0.6-1.3 N code = CREAT) CALCIUM (test code = 8.6 mg/dL 8.0-10.5 N CA) [id number] 10:19:00 Test Item Value Reference Range Interpretation Comments PHOSPHOROUS (test code = PHOS) 1.6 MG/DL 2.5-4.9 L [id number] 10:19:00 Test Item Value Reference Range Interpretation Comments MAGNESIUM (test code = 1.82 mg/dL 1.6-2.6 NOTE: NEW NORMAL MAG) RANGE CBC W/AUTO [id number] 09:40:00 Test Item Value Reference Range Interpretation Comments WHITE BLOOD CELL (test code = 7.8 x10 3/uL 4.5-11.0 N WBC) RED BLOOD CELL (test code = 4.29 x10 6/uL 3.54-5.02 N RBC) HEMOGLOBIN (test code = HGB) 12.7 g/dL 11.0-15.0 N HEMATOCRIT (test code = HCT) 41.4 % 33.0-45.0 N MEAN CELL VOLUME (test code = 96.5 fL 81.0-99.0 N MCV) MEAN CELL HGB (test code = MCH) 29.6 pg 27.0-33.0 N MEAN CELL HGB CONCETRATION 30.7 g/dL 33.0-37.0 L (test code = MCHC) RED CELL DISTRIBUTION WIDTH CV 13.9 % 11.5-14.5 N (test code = RDW) RED CELL DISTRIBUTION WIDTH SD 49.1 fL 37.0-54.0 N (test code = RDW-SD) PLATELET COUNT (test code = 259 x10 3/uL 150-400 N PLT) MEAN PLATELET VOLUME (test code 10.7 fL 7.0-9.0 H = MPV) NEUTROPHIL % (test code = NT%) 79.5 % 56.0-77.0 H IMMATURE GRANULOCYTE % (test 0.5 % 0.0-2.0 N code = IG%) LYMPHOCYTE % (test code = LY%) 6.1 % 14.0-32.0 L MONOCYTE % (test code = MO%) 11.4 % 4.8-9.0 H EOSINOPHIL % (test code = EO%) 2.0 % 0.3-3.7 N BASOPHIL % (test code = BA%) 0.5 % 0.0-2.0 N NUCLEATED RBC % (test code = 0.0 % 0-0 N NRBC%) NEUTROPHIL # (test code = NT#) 6.20 x10 3/uL 2.0-7.6 N IMMATURE GRANULOCYTE # (test 0.04 x10 3/uL 0.00-0.03 H code = IG#) LYMPHOCYTE # (test code = LY#) 0.48 x10 3/uL 1.0-3.8 L MONOCYTE # (test code = MO#) 0.89 x10 3/uL 0.1-0.8 H EOSINOPHIL # (test code = EO#) 0.16 x10 3/uL 0.0-0.2 N BASOPHIL # (test code = BA#) 0.04 x10 3/uL 0.0-0.2 N NUCLEATED RBC # (test code = 0.00 x10 3/uL 0.0-0.1 N NRBC#) MANUAL DIFF REQUIRED (test code NO = MDIFF) BASIC METABOLIC [id number] 18:50:00 Test Item Value Reference Range Interpretation Comments SODIUM (test code = 136 mEq/L 134-147 N NA) POTASSIUM (test code 3.3 mEq/L 3.4-5.0 L = K) CHLORIDE (test code 102 mEq/L 100-108 N = CL) CARBON DIOXIDE (test 32 mEq/l 21-33 code = CO2) ANION GAP (test code 5 0-20 N = GAP) GLUCOSE (test code = 172 mg/dL 77-141 H NOTE: N EW NORMAL RANGE GLU) BLOOD UREA NITROGEN 5 mg/dL 7-25 L NOTE: NE W NORMAL RANGE (test code = BUN) GLOMERULAR 89.6 70-80 H The Glomerular FILTRATION RATE Filtration R ate is a (test code = GFR) calculated parameterbased on serum Creatinine, pat ient age and sex. GFR va luesless than 60 mL/min/ 1.73 square meters a re indicative ofCh ronic Kidney Disease. Values less than 15 mL/min/1.73squa re meters indicate Kidney failure. The calculation forGFR is based on the CKD-EPI (2020) calculat ion. This formulais race indifferent and is the recommended for oumar for GFRby the [facility].The GFR will not calculate if th e sex is unknown or if thepatient's ag e is <18 years. CREATININE (test 0.7 mg/dL 0.6-1.3 code = CREAT) CALCIUM (test code = 9.2 mg/dL 8.0-10.5 N CA) BASIC METABOLIC [id number] 08:39:00 Test Item Value Reference Range Interpretation Comments SODIUM (test code = 139 mEq/L 134-147 N NA) POTASSIUM (test code 4.4 mEq/L 3.4-5.0 N = K) CHLORIDE (test code 106 mEq/L 100-108 N = CL) CARBON DIOXIDE (test 22 mEq/l 21-33 N code = CO2) ANION GAP (test code 15 0-20 N = GAP) GLUCOSE (test code = 129 mg/dL 77-141 NOTE: N EW NORMAL RANGE GLU) BLOOD UREA NITROGEN < 5 mg/dL 7-25 L NOTE: NE W NORMAL RANGE (test code = BUN) GLOMERULAR 30.9 70-80 L The Glomerular FILTRATION RATE Filtration R ate is a (test code = GFR) calculated parameterbased on serum Creatinine, pat ient age and sex. GFR va luesless than 60 mL/min/ 1.73 square meters a re indicative ofCh ronic Kidney Disease. Values less than 15 mL/min/1.73squa re meters indicate Kidney failure. The calculation forGFR is based on the CKD-EPI (2020) calculat ion. This formulais race indifferent and is the recommended for oumar for GFRby the [facility]ney Foundati on for Adults.The GFR will not calculate if th e sex is unknown or if thepatient's ag e is <18 years. CREATININE (test 1.7 mg/dL 0.6-1.3 H code = CREAT) CALCIUM (test code = 8.9 mg/dL 8.0-10.5 N CA) [id number] 08:39:00 Test Item Value Reference Range Interpretation Comments PHOSPHOROUS (test code = PHOS) 2.8 MG/DL 2.5-4.9 N [id number] 08:39:00 Test Item Value Reference Range Interpretation Comments MAGNESIUM (test code = 1.53 mg/dL 1.6-2.6 L NOTE: NEW NORMAL MAG) RANGE CALCIUM [id number] 08:39:00 Test Item Value Reference Range Interpretation Comments CALCIUM IONIZED (test code = KYLEE) 1.10 MMOL/L 1.09-1.30 N HGB [id number] 07:52:00 Test Item Value Reference Range Interpretation Comments HEMOGLOBIN (test code = HGB) 11.8 g/dL 11.0-15.0 N HEMATOCRIT (test code = HCT) 38.2 % 33.0-45.0 N BASIC METABOLIC [id number] 14:35:00 Test Item Value Reference Range Interpretation Comments SODIUM (test code = 139 mEq/L 134-147 N NA) POTASSIUM (test code 3.9 mEq/L 3.4-5.0 N = K) CHLORIDE (test code 105 mEq/L 100-108 N = CL) CARBON DIOXIDE (test 22 mEq/l 21-33 N code = CO2) ANION GAP (test code 16 0-20 N = GAP) GLUCOSE (test code = 179 mg/dL 77-141 H NOTE: N EW NORMAL RANGE GLU) BLOOD UREA NITROGEN 7 mg/dL 7-25 N NOTE: NE W NORMAL RANGE (test code = BUN) GLOMERULAR 76.3 70-80 N The Glomerular FILTRATION RATE Filtration R ate is a (test code = GFR) calculated parameterbased on serum Creatinine, pat ient age and sex. GFR va luesless than 60 mL/min/ 1.73 square meters a re indicative ofCh ronic Kidney Disease. Values less than 15 mL/min/1.73squa re meters indicate Kidney failure. The calculation forGFR is based on the CKD-EPI (2020) calculat ion. This formulais race indifferent and is the recommended for oumar for GFRby the [facility]ney Foundati on for Adults.The GFR will not calculate if th e sex is unknown or if thepatient's ag e is <18 years. 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 [facility] BASIC METABOLIC [id number] 10:40:00 Test Item Value Reference Range Interpretation Comments SODIUM (test code = 139 mEq/L 134-147 N NA) POTASSIUM (test code 4.2 mEq/L 3.4-5.0 N = K) CHLORIDE (test code 107 mEq/L 100-108 N = CL) CARBON DIOXIDE (test 31 mEq/l 21-33 N code = CO2) ANION GAP (test code 5 0-20 N = GAP) GLUCOSE (test code = 172 mg/dL 77-141 H NOTE: N EW NORMAL RANGE GLU) BLOOD UREA NITROGEN 9 mg/dL 7-25 N NOTE: NE W NORMAL RANGE (test code = BUN) GLOMERULAR 76.3 70-80 N The Glomerular FILTRATION RATE Filtration R ate is a (test code = GFR) calculated parameterbased on serum Creatinine, pat ient age and sex. GFR va luesless than 60 mL/min/ 1.73 square meters a re indicative ofCh ronic Kidney Disease. Values less than 15 mL/min/1.73squa re meters indicate Kidney failure. The calculation forGFR is based on the CKD-EPI (2020) calculat ion. This formulais race indifferent and is the recommended for oumar for GFRby the [facility]ney Foundati on for Adults.The GFR will not calculate if th e sex is unknown or if thepatient's ag e is <18 years. CREATININE (test 0.8 mg/dL 0.6-1.3 N code = CREAT) CALCIUM (test code = 9.0 mg/dL 8.0-10.5 N CA) PROTHROMBIN [id number] 10:29:00 Test Item Value Reference Range Interpretation Comments PROTHROMBIN TIME 11.1 SECONDS 9.3-12.9 N PATIENT (test code = [...] l Infarction (to prevent recurrent infar ct). THROMBOPLASTIN TIME [id number] 10:29:00 Test Item Value Reference Range Interpretation Comments THROMBOPLASTIN TIME 31.3 Seconds 25.0-39.5 N Therape utic Range: PARTIAL (test code = 50.4 - 88.3 Seconds PTT) Effective 07/18/2018 CBC W/AUTO [id number] 10:19:00 Test Item Value Reference Range Interpretation Comments WHITE BLOOD CELL (test code = 6.3 x10 3/uL 4.5-11.0 N WBC) RED BLOOD CELL (test code = 4.23 x10 6/uL 3.54-5.02 N RBC) HEMOGLOBIN (test code = HGB) 12.5 g/dL 11.0-15.0 N HEMATOCRIT (test code = HCT) 41.7 % 33.0-45.0 N MEAN CELL VOLUME (test code = 98.6 fL 81.0-99.0 N MCV) MEAN CELL HGB (test code = MCH) 29.6 pg 27.0-33.0 N MEAN CELL HGB CONCETRATION 30.0 g/dL 33.0-37.0 L (test code = MCHC) RED CELL DISTRIBUTION WIDTH CV 14.1 % 11.5-14.5 N (test code = RDW) RED CELL DISTRIBUTION WIDTH SD 50.4 fL 37.0-54.0 N (test code = RDW-SD) PLATELET COUNT (test code = 321 x10 3/uL 150-400 N PLT) MEAN PLATELET VOLUME (test code 11.1 fL 7.0-9.0 H = MPV) NEUTROPHIL % (test code = NT%) 68.3 % 56.0-77.0 N IMMATURE GRANULOCYTE % (test 0.5 % 0.0-2.0 N code = IG%) LYMPHOCYTE % (test code = LY%) 17.3 % 14.0-32.0 N MONOCYTE % (test code = MO%) 8.9 % 4.8-9.0 N EOSINOPHIL % (test code = EO%) 4.0 % 0.3-3.7 H BASOPHIL % (test code = BA%) 1.0 % 0.0-2.0 N NUCLEATED RBC % (test code = 0.0 % 0-0 N NRBC%) NEUTROPHIL # (test code = NT#) 4.30 x10 3/uL 2.0-7.6 N IMMATURE GRANULOCYTE # (test 0.03 x10 3/uL 0.00-0.03 N code = IG#) LYMPHOCYTE # (test code = LY#) 1.09 x10 3/uL 1.0-3.8 N MONOCYTE # (test code = MO#) 0.56 x10 3/uL 0.1-0.8 N EOSINOPHIL # (test code = EO#) 0.25 x10 3/uL 0.0-0.2 H BASOPHIL # (test code = BA#) 0.06 x10 3/uL 0.0-0.2 N NUCLEATED RBC # (test code = 0.00 x10 3/uL 0.0-0.1 N NRBC#) MANUAL DIFF REQUIRED (test code NO = MDIFF) - XR CHEST 2 [id number] 09:51:00 [facility] BLAN[facility] : 1945 Sex: F FAX:Sara Bañuelos [place]: St: PRE FAX: Larry White [phone] Name: ROBIN BLANCHARD [facility] : 1945 Age/S: 77/F [address] [place] [address] Blvd Unit #: [id number] Loc: [address] [address] Phys: Sara Bañuelos NP Acct: [id number] Dis Date: Status: PRE IN PHONE #: [phone] Exam Date: 12/28/2022929 FAX #: [phone] Reason: PREOP EXAMS: CPT CODE: [id number] XR CHEST 2 V 10224 Location: EXAM: - XR CHEST 2 V DATE: 12/28/2022 9:25 AM HISTORY: PREOP COMPARISON: Chest x-ray 09/09/2019FINDINGS: No airspace consolidation or pleural effusions. No pneumothorax. Patchy opacity in the left lower lobe The cardiovascular silhouette is within normal limits. Coronary stent. No bony lesions. IMPRESSION: Small patchy opacity in the left lower lobe may represent atelectasis. at 0951 Reported and signed by: Kendal Dee M.D. CC: Sara Bañuelos BOILER/CHILLER TECHNICIAN; Harman Leon MD Technologist: RT Nakul(R) Trnscrd Date/Time/By: 12/28/2022 (0951) : By: Devendra Orig Print D/T: S: 12/28/2022 (8671) PAGE 1 Signed ReportCBC W/PLT COUNT & AUTO [id number] 07:56:06 Test Item Value Reference Range Interpretation Comments WHITE BLOOD CELL COUNT (BEAKER) 6.9 K/ L 3.5-10.5 (test code = 775) RED BLOOD CELL COUNT (BEAKER) 3.04 M/ L 3.93-5.22 L (test code = 761) HEMOGLOBIN (BEAKER) (test code = 8.8 GM/DL 11.2-15.7 L 410) HEMATOCRIT (BEAKER) (test code = 29.7 % 34.1-44.9 L 411) MEAN CORPUSCULAR VOLUME (BEAKER) 98 fL 79-95 H (test code = 753) MEAN CORPUSCULAR HEMOGLOBIN 28.9 pg 25.6-32.2 (BEAKER) (test code = 751) MEAN CORPUSCULAR HEMOGLOBIN CONC 29.6 GM/DL 32.2-35.5 L (BEAKER) (test code = 752) RED CELL DISTRIBUTION WIDTH 19.6 % 11.7-14.4 H (BEAKER) (test code = 412) PLATELET COUNT (BEAKER) (test 235 K/CU MM 150-450 code = 756) MEAN PLATELET VOLUME (BEAKER) 12.0 fL 9.4-12.3 (test code = 754) NUCLEATED RED BLOOD CELLS 0 /100 WBC 0-0 (BEAKER) (test code = 413) NEUTROPHILS RELATIVE PERCENT 70 % (BEAKER) (test code = 429) LYMPHOCYTES RELATIVE PERCENT 14 % (BEAKER) (test code = 430) MONOCYTES RELATIVE PERCENT 10 % (BEAKER) (test code = 431) EOSINOPHILS RELATIVE PERCENT 5 % (BEAKER) (test code = 432) BASOPHILS RELATIVE PERCENT 1 % (BEAKER) (test code = 437) NEUTROPHILS ABSOLUTE COUNT 4.82 K/ L 1.56-6.13 (BEAKER) (test code = 670) LYMPHOCYTES ABSOLUTE COUNT 0.93 K/ L 1.18-3.74 L (BEAKER) (test code = 414) MONOCYTES ABSOLUTE COUNT (BEAKER) 0.71 K/ L 0.24-0.36 H (test code = 415) EOSINOPHILS ABSOLUTE COUNT 0.33 K/ L 0.04-0.36 (BEAKER) (test code = 416) BASOPHILS ABSOLUTE COUNT (BEAKER) 0.07 K/ L 0.01-0.08 (test code = 417) IMMATURE GRANULOCYTES-RELATIVE 0.70 % 0.00-1.00 PERCENT (BEAKER) (test code = 2801) BASIC METABOLIC [id number] 07:24:52 Test Item Value Reference Range Interpretation Comments SODIUM (BEAKER) 140 meq/L 136-145 (test code = 381) POTASSIUM 3.7 meq/L 3.5-5.1 (BEAKER) (test code = 379) CHLORIDE (BEAKER) 108 meq/L 98-107 H (test code = 382) CO2 (BEAKER) 24 meq/L 22-29 (test code = 355) BLOOD UREA 10 mg/dL 7-21 NITROGEN (BEAKER) (test code = 354) CREATININE 0.77 mg/dL 0.57-1.25 (BEAKER) (test code = 358) GLUCOSE RANDOM 139 mg/dL 70-105 H (BEAKER) (test code = 652) CALCIUM (BEAKER) 9.1 mg/dL 8.4-10.2 (test code = 697) EGFR (BEAKER) 80 Interpretatio n of eGFR (test code = mL/min/1.73 values Stage De scription 1092) sq m Result G1 Norm al or high >=90 G2 Mildly decreased 60-89 G3a Mildl y to moderately 45-5 9 G3b Moderately to s everely 30-44 G4 Severl y decreased 15-29 G5 Kidne y failure <15Reported eGF R is based on the CKD-EPI 2020 equation that d oes not use a race coefficientEsti mated GFR is not as accur ate as Creatinine Radha paris in predicting glom erular filtration rate . Estimated GFR is not appl icable for dialysis patien ts Liner Man ID - ADMINCBC W/PLT COUNT & AUTO [id number] 07:02:11 Test Item Value Reference Range Interpretation Comments WHITE BLOOD CELL COUNT (BEAKER) 7.4 K/ L 3.5-10.5 (test code = 775) RED BLOOD CELL COUNT (BEAKER) 3.22 M/ L 3.93-5.22 L (test code = 761) HEMOGLOBIN (BEAKER) (test code = 9.2 GM/DL 11.2-15.7 L 410) HEMATOCRIT (BEAKER) (test code = 30.3 % 34.1-44.9 L 411) MEAN CORPUSCULAR VOLUME (BEAKER) 94 fL 79-95 (test code = 753) MEAN CORPUSCULAR HEMOGLOBIN 28.6 pg 25.6-32.2 (BEAKER) (test code = 751) MEAN CORPUSCULAR HEMOGLOBIN CONC 30.4 GM/DL 32.2-35.5 L (BEAKER) (test code = 752) RED CELL DISTRIBUTION WIDTH 19.4 % 11.7-14.4 H (BEAKER) (test code = 412) PLATELET COUNT (BEAKER) (test 234 K/CU MM 150-450 code = 756) MEAN PLATELET VOLUME (BEAKER) 11.9 fL 9.4-12.3 (test code = 754) NUCLEATED RED BLOOD CELLS 0 /100 WBC 0-0 (BEAKER) (test code = 413) NEUTROPHILS RELATIVE PERCENT 68 % (BEAKER) (test code = 429) LYMPHOCYTES RELATIVE PERCENT 14 % (BEAKER) (test code = 430) MONOCYTES RELATIVE PERCENT 11 % (BEAKER) (test code = 431) EOSINOPHILS RELATIVE PERCENT 5 % (BEAKER) (test code = 432) BASOPHILS RELATIVE PERCENT 1 % (BEAKER) (test code = 437) NEUTROPHILS ABSOLUTE COUNT 5.03 K/ L 1.56-6.13 (BEAKER) (test code = 670) LYMPHOCYTES ABSOLUTE COUNT 1.07 K/ L 1.18-3.74 L (BEAKER) (test code = 414) MONOCYTES ABSOLUTE COUNT (BEAKER) 0.78 K/ L 0.24-0.36 H (test code = 415) EOSINOPHILS ABSOLUTE COUNT 0.39 K/ L 0.04-0.36 H (BEAKER) (test code = 416) BASOPHILS ABSOLUTE COUNT (BEAKER) 0.09 K/ L 0.01-0.08 H (test code = 417) IMMATURE GRANULOCYTES-RELATIVE 0.70 % 0.00-1.00 PERCENT (BEAKER) (test code = 2801) COMPREHENSIVE METABOLIC [id number] 22:37:50 Test Item Value Reference Range Interpretation Comments TOTAL PROTEIN 5.5 gm/dL 6.0-8.3 L (BEAKER) (test code = 770) ALBUMIN (BEAKER) 3.5 g/dL 3.5-5.0 (test code = 1145) ALKALINE 39 U/L 40-150 L PHOSPHATASE (BEAKER) (test code = 346) BILIRUBIN TOTAL 1.9 mg/dL 0.2-1.2 H (BEAKER) (test code = 377) SODIUM (BEAKER) 139 meq/L 136-145 (test code = 381) POTASSIUM (BEAKER) 3.8 meq/L 3.5-5.1 (test code = 379) CHLORIDE (BEAKER) 107 meq/L 98-107 (test code = 382) CO2 (BEAKER) (test 24 meq/L 22-29 code = 355) BLOOD UREA 15 mg/dL 7-21 NITROGEN (BEAKER) (test code = 354) CREATININE 0.86 mg/dL 0.57-1.25 (BEAKER) (test code = 358) GLUCOSE RANDOM 120 mg/dL 70-105 H (BEAKER) (test code = 652) CALCIUM (BEAKER) 9.4 mg/dL 8.4-10.2 (test code = 697) AST (SGOT) 15 U/L 5-34 (BEAKER) (test code = 353) ALT (SGPT) 11 U/L 6-55 (BEAKER) (test code = 347) EGFR (BEAKER) 70 Interpretatio n of eGFR (test code = 1092) mL/min/1.[address] age Description sq m Result G1 Geni l or high >=90 G2 Mildly decreased 60-89 G3a Mildl y to moderately 45-5 9 G3b Moderately to s everely 30-44 G4 Severl y decreased 15-29 G5 Kidne y failure <15Reported eGF R is based on the CKD-EPI 2020 equation that d oes not use a race coefficientEsti mated GFR is not as accur ate as Creatinine Radha paris in predicting glom erular filtration rate . Estimated GFR is not appl icable for dialysis patien ts Liner Man ID - ADMINSpecimen slightly [id number] 22:32:27 Test Item Value Reference Range Interpretation Comments PARTIAL THROMBOPLASTIN TIME 27.0 seconds 22.5-36.0 (BEAKER) (test code = 760) PROTHROMBIN [id number] 22:31:45 Test Item Value Reference Range Interpretation Comments PROTIME (BEAKER) (test code = 14.7 seconds 11.9-14.2 H 759) INR (BEAKER) (test code = 370) 1.22 <=5.90 RECOMMENDED COUMADIN/WARFARIN INR THERAPY RANGESSTANDARD DOSE: 2.0 - 3.0 Includes: PROPHYLAXIS for venous thrombosis, systemic embolization; TREATMENT for venous thrombosis and/or pulmonary embolus.HIGH RISK: Target INR is 2.5-3.5 for patients with mechanical heart valves.LACTIC ACID, [id number] 22:31:08 Test Item Value Reference Range Interpretation Comments LACTATE BLOOD VENOUS (2) (BEAKER) 0.86 mmol/L 0.50-2.00 (test code = 2872) Liner Man ID - ADMINSpecimen slightly ictericCBC W/PLT COUNT & AUTO [id number] 22:21:18 Test Item Value Reference Range Interpretation Comments WHITE BLOOD CELL COUNT (BEAKER) 8.0 K/ L 3.5-10.5 (test code = 775) RED BLOOD CELL COUNT (BEAKER) 3.01 M/ L 3.93-5.22 L (test code = 761) HEMOGLOBIN (BEAKER) (test code = 8.7 GM/DL 11.2-15.7 L 410) HEMATOCRIT (BEAKER) (test code = 28.5 % 34.1-44.9 L 411) MEAN CORPUSCULAR VOLUME (BEAKER) 95 fL 79-95 (test code = 753) MEAN CORPUSCULAR HEMOGLOBIN 28.9 pg 25.6-32.2 (BEAKER) (test code = 751) MEAN CORPUSCULAR HEMOGLOBIN CONC 30.5 GM/DL 32.2-35.5 L (BEAKER) (test code = 752) RED CELL DISTRIBUTION WIDTH 18.4 % 11.7-14.4 H (BEAKER) (test code = 412) PLATELET COUNT (BEAKER) (test 247 K/CU MM 150-450 code = 756) MEAN PLATELET VOLUME (BEAKER) 12.1 fL 9.4-12.3 (test code = 754) NUCLEATED RED BLOOD CELLS 0 /100 WBC 0-0 (BEAKER) (test code = 413) NEUTROPHILS RELATIVE PERCENT 65 % (BEAKER) (test code = 429) LYMPHOCYTES RELATIVE PERCENT 18 % (BEAKER) (test code = 430) MONOCYTES RELATIVE PERCENT 11 % (BEAKER) (test code = 431) EOSINOPHILS RELATIVE PERCENT 4 % (BEAKER) (test code = 432) BASOPHILS RELATIVE PERCENT 1 % (BEAKER) (test code = 437) NEUTROPHILS ABSOLUTE COUNT 5.23 K/ L 1.56-6.13 (BEAKER) (test code = 670) LYMPHOCYTES ABSOLUTE COUNT 1.47 K/ L 1.18-3.74 (BEAKER) (test code = 414) MONOCYTES ABSOLUTE COUNT (BEAKER) 0.89 K/ L 0.24-0.36 H (test code = 415) EOSINOPHILS ABSOLUTE COUNT 0.31 K/ L 0.04-0.36 (BEAKER) (test code = 416) BASOPHILS ABSOLUTE COUNT (BEAKER) 0.06 K/ L 0.01-0.08 (test code = 417) IMMATURE GRANULOCYTES-RELATIVE 0.70 % 0.00-1.00 PERCENT (BEAKER) (test code = 2801) POC-Glucose [id number] 21:08:11 Test Item Value Reference Range Interpretation Comments POC-Glucose Meter (test 125 mg/dL 70-110 H : No tified RN/MD: code = 1538) TESTED AT [address], [address]: Liner Man/Techni sebastian ID = [id number] for BETTE THOMAS Lab Interpretation (test Abnormal code = 48111-5) [facility] [id number] 21:08:11 Test Item Value Reference Range Interpretation Comments POC-Glucose Meter (test 125 mg/dL 70-110 H : No tified RN/MD: code = 1538) TESTED AT [address], [address]: Liner Man/Techni sebastian ID = [id number] for BETTE THOMAS Lab Interpretation (test Abnormal code = 14450-9) 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 [facility] [id number] 08:29:00 Test Item Value Reference Range Interpretation Comments ACT-ISTAT (test code 265 SEC 74-137 H Perform ed by certified = ACTI) lining 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 5 - 3.5 Presence of Tiffanie pus Anticoagulant o r Antiphospholipi d Antibodies, Pre vention of systemic emb olism - Acute Myocardia l Infarction (to prevent recurrent infar ct). CBC W/AUTO [id number] 14:55:00 Test Item Value Reference Range Interpretation [...] 0.0-0.1 N NRBC#) - XR CHEST 2 [id number] 00:00:00 [facility] : 1945 Sex: F FAX:Gabriel Orozco MD [phone] [place]: St: PRE Name: ROBIN BLANCHARD [facility] : 1945 Age/S: 75/F [address] [place] [address] Unit #: [id number] Loc: [place] [address] Phys: Gabriel Cruz MD Acct: [id number] Dis Date: Status: PRE [facility] PHONE #: [phone] Exam Date: 09/08/2021 1551 FAX #: [phone]: PREOP EXAMS: CPT CODE: [id number] XR CHEST 2 V 71528 PROCEDURE INFORMATION: Exam: XR Chest Exam date and time: 09/08/2021 2:47 PM Age: 75 years old Clinical indication: Pre-operative exam; Respiratory screening exam; Additional info: Preop TECHNIQUE: Imaging protocol: XR of the chest. Views: 2 views. COMPARISON: No relevant prior studies available. FINDINGS: Lungs: The lungs are clear. Pleural spaces: No pleural effusion. No pneumothorax. Heart/Mediastinum: Cardiomediastinal silhouette is within normal limits for size with coronary artery calcifications or graft. Bones/joints: No acute bony finding. IMPRESSION: No acute or active pulmonary findings at 2316 Reported and signed by: Keven Pastor M.D. 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 [facility] [id number] 12:18:00 Test Item Value Reference Range Interpretation Comments ACT-ISTAT (test code 243 SEC 74-137 H Perform ed by certified = ACTI) 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 CBC W/AUTO [id number] 14:37:00 Test Item Value Reference Range Interpretation [...]
[2023-01-05 14:47] LABS: Hematocrit 34.3 % (36.0-45.0); Lymphocytes % 16.9 % (15.3-44.8); Platelets 249 thou/uL (152-406); RBC Red Blood Cell Count 3.73 M/uL (3.86-4.86)
[2023-01-05 15:06] LABS: Albumin 2.8 g/dL (3.4-5.0); Bilirubin Total 0.5 mg/dL (0.2-1.0); Potassium 4.1 mEq/L (3.5-5.1); Protein, Total 6.3 g/dL (6.4-8.2)
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
[2023-01-05] MEDS ORDERED: FENTANYL CITR 100 MCG/2 ML ONE (17:09)
[2023-01-05] MEDS ORDERED: NA CHLORIDE 0.9% 250 ML ONE (17:09)
--- NOTE | 2023-01-05 18:21 | EDPHYS ---
Physician Documentation [facility] Name: Cornel Brewer Age: 77 yrs Sex: Female : 1945 Arrival Date: 01/05/2023 Time: 13:35 Bed 14 Private MD: ED Physician Mart Stockton HPI: 01/05 14:13 This 77 yrs old Female presents to ER via Wheelchair with complaints of fall on Eliquis.snw 14:13 Details of fall: The patient fell from an upright position, while walking. Onset: The snw symptoms/episode began/occurred suddenly, just prior to arrival. Associated injuries: The patient sustained injury to the head, no LOC, fell to floor at [employer]. struck head and left flank. Pt on Eliquis. 14:28 Severity of symptoms: At their worst the symptoms were mild, moderate. It is unknown snw whether or not the patient has had similar symptoms in the past. The patient has been recently seen by a physician: recent abd surgery. . pt fell at [employer] today prior to arrival, c/o left flank pain, no LOC, pt is on Eliquis. Historical: - Allergies: 13:51 PHENOTHIAZINES; aa5 - PMHx: 13:51 Hypertensive disorder; Cancer; aa5 - PSHx: 13:51 Cancerous mass removed from Colon; aa5 - Immunization history:: Adult Immunizations unknown. - Social history:: Smoking status: Reported history of juuling and/or vaping. ROS: 14:28 Constitutional: Negative for fever, chills, and weight loss, Eyes: Negative for injury, snw pain, redness, and discharge, ENT: Negative for injury, pain, and discharge, Neck: Negative for injury, pain, and swelling, Cardiovascular: Negative for chest pain, palpitations, and edema, Respiratory: Negative for shortness of breath, cough, wheezing, and pleuritic chest pain, Abdomen/GI: Negative for abdominal pain, nausea, vomiting, diarrhea, and constipation, Back: Positive for injury and pain to left flank area MS/Extremity: Negative for injury and deformity, Skin: Negative for injury, rash, and discoloration, 14:28 Neuro: Positive for family states pt has been a bit confused for a few days, Exam: 14:11 Constitutional: This is a well developed, well nourished patient who is awake, alert, snw and in no acute distress. Head/Face: Normocephalic, atraumatic. Eyes: Pupils equal round and reactive to light, extra-ocular motions intact. Lids and lashes normal. Conjunctiva and sclera are non-icteric and not injected. Cornea within normal limits. Periorbital areas with no swelling, redness, or edema. ENT: Nares patent. No nasal discharge, no septal abnormalities noted. Tympanic membranes are normal and external auditory canals are clear. Oropharynx with no redness, swelling, or masses, exudates, or evidence of obstruction, uvula midline. Mucous membranes moist. Neck: Trachea midline, no thyromegaly or masses palpated, and no cervical lymphadenopathy. Supple, full range of motion without nuchal rigidity, or vertebral point tenderness. No Meningismus. Chest/axilla: Normal chest wall appearance and motion. Nontender with no deformity. No lesions are appreciated. Cardiovascular: Regular rate and rhythm with a normal S1 and S2. No gallops, murmurs, or rubs. Normal PMI, no JVD. No pulse deficits. Respiratory: Lungs have equal breath sounds bilaterally, clear to auscultation and percussion. No rales, rhonchi or wheezes noted. No increased work of breathing, no retractions or nasal flaring. Back: No spinal tenderness. No costovertebral tenderness. Full range of motion. Skin: Warm, dry with normal turgor. Normal color with no rashes, no lesions, and no evidence of cellulitis. MS/ Extremity: Pulses equal, no cyanosis. Neurovascular intact. Full, normal range of motion. Neuro: Awake and alert, GCS 15, oriented to person, place, time, and situation. Cranial nerves II-XII grossly intact. Motor strength 5/5 in all extremities. Sensory grossly intact. Cerebellar exam normal. Mild confusion intermittently. Psych: Awake, alert, with orientation to person, place and time. Behavior, mood, and affect are within normal limits. 14:11 Abdomen/GI: Inspection: abdomen appears normal, surgical dressing over midline lower abd s/p colon surgery to remove mass. dressing dry and intact, Bowel sounds: normal, Palpation: mild abdominal tenderness, in the posterior aspect of left lateral abdomen, Vital Signs: 13:35 BP 111 / 79; Pulse 66; Resp 18 S; Temp 98.2(O); Pulse Ox 96% on R/A; Weight 63.05 kg aa5 (R); Height 5 ft. 2 in. (R); 14:28 BP 107 / 58; Pulse 83; Resp 17; Pulse Ox 95% on R/A; Pain 0/10; nj1 15:30 BP 119 / 55; Pulse 83; Resp 16; Pulse Ox 96% on R/A; nj1 16:30 BP 127 / 60; Pulse 75; Resp 16; Pulse Ox 97% ; nj1 17:10 BP 127 / 60 Supine; Pulse 76; nj1 17:10 BP 118 / 58 Sitting; Pulse 72; nj1 13:35 Body Mass Index 25.42 (63.05 kg, 157.48 cm) aa5 14:28 Pain Scale: Adult nj1 MDM: 13:45 Patient medically screened. snw 15:35 Differential diagnosis: abrasion, closed head injury, sprain, strain. Data reviewed: snw vital signs, nurses notes. Historians other than the Patient: Family Member: Sister and Friend. Counseling: I had a detailed discussion with the patient and/or guardian regarding the historical points, exam findings, and any diagnostic results supporting the discharge/admit diagnosis, lab results, radiology results. ED course: pt just returned from CT via stetcher. 16:29 Counseling: I had a detailed discussion with the patient and/or guardian regarding snw discussed increase in lung nodules sizes with pt, states she has an appointment with her robot technician on Tuesday,. Response to treatment: the patient's symptoms have mildly improved after treatment. 16:34 Awaiting: urine recollection. snw 01/05 13:46 Order name: CBC with Diff; Complete Time: 14:49 snw 01/05 13:46 Order name: CMP; Complete Time: 15:12 snw 01/05 13:46 Order name: Lipase; Complete Time: 15:12 snw 01/05 16:22 Order name: Urine W/Microscopic (UAM); Complete Time: 18:45 snw 01/05 13:46 Order name: CT Traumagram (Head C Spine CAP W Con); Complete Time: 17:02 snw 01/05 13:46 Order name: IV Saline Lock; Complete Time: 14:27 snw 01/05 13:46 Order name: Labs collected and sent; Complete Time: 14:27 snw 01/05 16:22 Order name: Orthostatics; Complete Time: 17:15 snw Administered Medications: 17:05 Drug: NS 0.9% IV 250 ml IV at bolus once Route: IV; Rate: bolus; Site: right nj1 antecubital; 17:05 Drug: fentaNYL (PF) IVP 25 mcg IVP once Route: IVP; Site: right antecubital; nj1 Disposition: 14:52 I was immediately available on-site in the Emergency Department for consultation in the ms3 care of the patient. Disposition Summary: 01/05/23 18:20 Discharge Ordered Notes: Location: Home snw Condition: Stable snw Diagnosis - Fall on same level from slipping, tripping and stumbling with subsequent striking snw against object - Multiple fractures of ribs, left side - left 6th and left 7th ribs snw - Solitary pulmonary nodule - x [address] snw Followup: snw - With: Emergency Department - When: As needed - Reason: Worsening of condition Followup: snw - With: Private Physician - When: 1 - 2 days - Reason: Recheck today's complaints, Continuance of care, Re-evaluation by your physician Discharge Instructions: - Discharge Summary Sheet snw - Head Injury, Adult snw - Fall Prevention in the Home, Adult snw - Rib Fracture snw - How to Use an Incentive Spirometer snw - Pulmonary Nodule snw - Rehydration, Elderly snw - Incentive Spirometer Record snw Forms: - Medication Reconciliation Form snw - Thank You Letter snw - Antibiotic Education snw - Prescription Opioid Use snw - Patient Portal Instructions snw - Leadership Thank You Letter snw Prescriptions: - acetaminophen-codeine 300-30 mg Oral tablet - take 1 tablet ORAL route every 6-8 hours as needed for pain; 20 tablet; snw Refills: 0, Product Selection Permitted Signatures: Dispatcher [employer] EDMS Shayna Philip FNP-C FNP-Csnw Manuela Major, RN RN aa5 Mart Stockton, DO ms3 Geni Wilkins RN RN nj1 Corrections: (The following items were deleted from the chart) 16:36 16:34 IS+RC.RAD.BRZ ordered. EDMS EDMS 18:16 13:46 Urinalysis+U.LAB.BRZ ordered. EDMS EDMS
--- NOTE | 2023-01-05 18:21 | ER ---
Nurse's Notes [facility] Name: Cornel Brewer Age: 77 yrs Sex: Female : 1945 Arrival Date: 01/05/2023 Time: 13:35 Bed 14 Private MD: Diagnosis: Fall on same level from slipping, tripping and stumbling with subsequent striking against object;Multiple fractures of ribs, left side-left 6th and left 7th ribs;Solitary pulmonary nodule-x [address] Presentation: 01/05 13:35 Chief complaint: Patient states: "I got dizzy at [employer] and fell". Pt reports she takes aa5 Eliquis and she did hit her head, denies LOC, reports pain to left rib cage since fall. Pt's sister also reports confusion and recent removal of cancerous mass from colon at [facility]. Pt currently A\\T\\O x person,time,place, situation. 13:35 Coronavirus screen: At this time, the client does not indicate any symptoms associated aa5 with coronavirus-19. Ebola Screen: Patient denies travel to an Ebola-affected area in the 21 days before illness onset. Initial Sepsis Screen: Does the patient meet any 2 criteria? No. Patient's initial sepsis screen is negative. Does the patient have a suspected source of infection? No. Patient's initial sepsis screen is negative. Risk Assessment: Do you want to hurt yourself or someone else? Patient reports no desire to harm self or others. Onset of symptoms was January 05, 2023. 13:35 Acuity: DARIO 2 aa5 13:35 Method Of Arrival: Wheelchair aa5 Historical: - Allergies: 13:51 PHENOTHIAZINES; aa5 - PMHx: 13:51 Hypertensive disorder; Cancer; aa5 - PSHx: 13:51 Cancerous mass removed from Colon; aa5 - Immunization history:: Adult Immunizations unknown. - Social history:: Smoking status: Reported history of juuling and/or vaping. Screenin:30 [facility] ED Fall Risk Assessment (Adult) Score/Fall Risk Level 3 or more points = High nj1 Risk Oriented to surroundings, Maintained a safe environment, Utilized family, sitter, or virtual terrapin fisher as indicated. Abuse screen: Denies threats or abuse. Denies injuries from another. Nutritional screening: No deficits noted. Tuberculosis screening: No symptoms or risk factors identified. Assessment: 14:29 General: Appears in no apparent distress. comfortable, Behavior is calm, cooperative, nj1 appropriate for age. Pain: Denies pain. Neuro: Level of Consciousness is awake, alert, obeys commands, Oriented to person, place, situation. Respiratory: No deficits noted. 15:30 Reassessment: Patient appears in no apparent distress at this time. Patient and/or nj1 family updated on plan of care and expected duration. Pain level reassessed. Patient is alert, oriented x 3, equal unlabored respirations, skin warm/dry/pink. 16:30 Reassessment: Patient appears in no apparent distress at this time. Pt resting/sleeping.nj1 Vital Signs: 13:35 BP 111 / 79; Pulse 66; Resp 18 S; Temp 98.2(O); Pulse Ox 96% on R/A; Weight 63.05 kg aa5 (R); Height 5 ft. 2 in. (R); 14:28 BP 107 / 58; Pulse 83; Resp 17; Pulse Ox 95% on R/A; Pain 0/10; nj1 15:30 BP 119 / 55; Pulse 83; Resp 16; Pulse Ox 96% on R/A; nj1 16:30 BP 127 / 60; Pulse 75; Resp 16; Pulse Ox 97% ; nj1 17:10 BP 127 / 60 Supine; Pulse 76; nj1 17:10 BP 118 / 58 Sitting; Pulse 72; nj1 13:35 Body Mass Index 25.42 (63.05 kg, 157.48 cm) aa5 14:28 Pain Scale: Adult [facility] ED Course: 13:35 Arm band placed on Patient placed in an exam room, on a stretcher. aa5 13:35 Patient has correct armband on for positive identification. Placed in gown. Bed in low aa5 position. Call light in reach. Side rails up X2. Adult w/ patient. 13:45 Patient arrived in ED. snw 13:45 Shayna Philip FNP-C is PHCP. snw 13:45 Mart Stockton DO is Attending Physician. snw 13:49 Geni Wilkins, DAVID is Primary Nurse. nj1 13:54 Triage completed. aa5 14:25 Inserted saline lock: 22 gauge in right antecubital area, using aseptic technique. nj1 Blood collected. 14:31 Provided Education on: call light, fall precautions. nj1 15:34 CT Traumagram (Head C Spine CAP W Con) In Process Unspecified. EDMS 18:42 No provider procedures requiring assistance completed. IV discontinued, intact, aa5 bleeding controlled, No redness/swelling at site. Pressure dressing applied. Administered Medications: 17:05 Drug: NS 0.9% IV 250 ml IV at bolus once Route: IV; Rate: bolus; Site: right nj antecubital; 17:05 Drug: fentaNYL (PF) IVP 25 mcg IVP once Route: IVP; Site: right antecubital; nj Medication: 18:53 VIS not applicable for this client. cm10 Outcome: 18:20 Discharge ordered by . snw 18:53 Discharged to home via wheelchair, with family, cm10 18:53 Condition: good 18:53 Discharge instructions given to patient, Instructed on discharge instructions, follow up and referral plans. medication usage, Demonstrated understanding of instructions, follow-up care, medications, Prescriptions given X 1, 18:53 Patient left the ED. cm10 Signatures: Dispatcher [employer] EDMS Shayna Philip, TALEND DEVELOPER-C TALEND DEVELOPER-Csnw Manuela Major, RN RN aa5 Geni Wilkins, DAVID RN nj1 Alix Tong, RN RN cm10
[2023-01-05 18:25] LABS: Specific Gravity > 1.030 (1.005-1.030); Urine Bacteria None Seen /HPF (<20); Urine Bilirubin NEGATIVE (Negative); Urine Blood Negative (Negative); Urine Clarity Clear (Clear); Urine Color Light-Yellow (Yellow); Urine Glucose 4+ (Over) (Negative); Urine Protein NEGATIVE (Negative); Urine RBC <5 /HPF (None Seen); Urine Urobilinogen Normal (Normal)
[2023-01-05 19:11] VITALS: TEMP 98.2
[2023-01-05 19:24] VITALS: O2SAT 97
[2023-01-05 19:25] VITALS: BP 118/58
== END 2023-01-05 18:53 | disposition home or self-care (01) ==
LOC: ER 13:35
DX: S22.42XA Multiple fractures of ribs, left side, initial encounter for closed fracture (principal); R91.1 Solitary pulmonary nodule; W01.10XA Fall on same level from slipping, tripping and stumbling with subsequent striking against unspecified object, initial encounter; I10 Essential (primary) hypertension; Z88.8 Allergy status to other drugs, medicaments and biological substances; Z85.038 Personal history of other malignant neoplasm of large intestine; Z79.01 Long term (current) use of anticoagulants
CPT/HCPCS: 85025; 81001; 36415; 83690; 80053; 70450; 72125; 71260; 74177; Q9967; J3010; J7050; 96374; 96375; 99284